=== PATIENT | female | born 1970 | race Caucasian/White ===

== ENCOUNTER 2019-01-09 20:08 | Emergency (ER) | payer MEDICAID ==
[2019-01-09] MEDS ORDERED: Acetaminophen/HYDROcodone 325-10 MG Tab PO ONE (22:34)
--- NOTE | 2019-01-09 22:39 | EDM.PDOC ---
ED HPI GENERAL MEDICAL PROBLEM - General Chief Complaint: Lower Extremity Injury/Pain Stated Complaint: LEFT KNEE AND LEG SWELLING PAIN ETC. Time Seen by Provider: 01/09/19 22:34 Source of Information: Reports: Patient History Limitations: Reports: No Limitations - History of Present Illness INITIAL COMMENTS - FREE TEXT/NARRATIVE: states had left knee surgery in 2017 and past week it flared up and swollen x 2 days, denies trauma. has appt with PMD next week. 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: , Spontaneous Musculoskeletal History: Reports: Back Pain, Chronic Neurological History: Reports: Head Trauma, Vertigo Psychiatric History: Reports: Anxiety, Depression, Mood Swings, PTSD Endocrine/Metabolic History: Reports: Diabetes, Type II, Hypothyroidism, Obesity /BMI 30+ Oncologic (Cancer) History: Reports: Uterine Dermatologic History: Reports: Eczema, Urticaria - Past Surgical History HEENT Surgical History: Reports: Adenoidectomy, Tonsillectomy Other Respiratory Surgeries/Procedures: wears cpap at night Female Surgical History: Reports: Hysterectomy, Oophorectomy Social & Family History - Family History Family Medical History: Noncontributory - Tobacco Use Smoking Status *Q: Current Every Day Smoker Years of Tobacco use: 26 Packs/Tins Daily: 0.5 Used Tobacco, but Quit: No Second Hand Smoke Exposure: Yes - Caffeine Use Caffeine Use: Reports: Coffee - Recreational Drug Use Recreational Drug Use: No Review of Systems - Review of Systems Review Of Systems: ROS reveals no pertinent complaints other than HPI. ED EXAM, GENERAL - Physical Exam Exam: See Below Exam Limited By: No Limitations General Appearance: Alert, WD/WN, Mild Distress, Other (discomfort) Ears: Hearing Grossly Normal Throat/Mouth: Normal Voice, No Airway Compromise Head: Atraumatic Neck: Non-Tender, Full Range of Motion Respiratory/Chest: No Respiratory Distress Cardiovascular: Regular Rate, Rhythm GI/Abdominal: Soft, Non-Tender Extremities: Other (left knee swollen tender R/P, NV wnl, gait limited to pain.) Neurological: Alert, Oriented, Normal Cognition, No Motor/Sensory Deficits Psychiatric: Tearful Skin Exam: Warm, Dry, Normal Color Lymphatic: No Adenopathy Course - Vital Signs Last Recorded V/S: Last Vital Signs Temp 36.7 C 01/09/19 20:30 Pulse 80 01/09/19 20:30 Resp 18 01/09/19 20:30 BP 156/81 H 01/09/19 20:30 Pulse Ox 96 01/09/19 20:30 - Orders/Labs/Meds Orders: Active Orders 24 hr Category Date Time Status Acetaminophen/HYDROcodone [[place] 325-10 MG] Med 01/09/19 22:34 Once 1 tab PO ONETIME ONE Departure - Departure Time of Disposition: 22:37 Disposition: Home, Self-Care 01 Condition: Fair Clinical Impression: Knee effusion, left - Discharge Information Instructions: Knee Effusion, [id number] Additional Instructions: 1) elevate knee as much as possible 2) wear knee immobilizer 3) see clinic tomorrow for ORTHOPEDIC REFERRAL OR MRI SCAN - My Orders Last 24 Hours: My Active Orders 01/09/19 22:34 Acetaminophen/HYDROcodone [[place]rier 325-10 MG] 1 tab PO ONETIME ONE - Assessment/Plan Last 24 Hours: My Active Orders 01/09/19 22:34 Acetaminophen/HYDROcodone [[place]rier 325-10 MG] 1 tab PO ONETIME ONE
== END 2019-01-09 23:02 | disposition home or self-care (01) ==
LOC: DL.ED 20:08
DX: M25.462 Effusion, left knee (principal); E11.9 Type 2 diabetes mellitus without complications; E66.9 Obesity, unspecified; F17.210 Nicotine dependence, cigarettes, uncomplicated; Z68.42 Body mass index [BMI] 45.0-49.9, adult; Z88.5 Allergy status to narcotic agent; Z91.040 Latex allergy status
CPT/HCPCS: 99283; A9270

== ENCOUNTER 2019-04-02 03:26 | Emergency (ER) | payer MEDICAID ==
[~2019-04-02 03:26] MED LIST: Albuterol 0.021% 0.63 MG/3 ML Neb Soln NEB ONE; methylPREDNISolone Sodium Succinate 125 MG/2 ML SDV IM ONE
[2019-04-02] MEDS ORDERED: LORazepam 2 MG/ML Syringe IVPUSH ONE (03:40)
[2019-04-02] MEDS ORDERED: Furosemide 40 MG/4 ML VIAL IVPUSH ONE (03:40)
[2019-04-02] MEDS ORDERED: Furosemide 40 MG/4 ML VIAL ONE (03:42)
[2019-04-02] MEDS ORDERED: LORazepam 2 MG/ML Syringe ONE (03:42)
[2019-04-02] MEDS ORDERED: Albuterol 0.083% 2.5 MG/3 ML Neb Soln NEB ONE (03:53)
[2019-04-02] MEDS ORDERED: Levofloxacin/Dextrose 5%-Water 500 MG in Premix Bag 1 BAG IV ONE (03:58)
[2019-04-02 03:59] LABS: ANION GAP 14.7; CHLORIDE,CL 102 mmol/L (101-111); SODIUM,NA 137 mmol/L (135-145)
--- NOTE | 2019-04-02 04:02 | EDM.PDOC ---
ED HPI GENERAL MEDICAL PROBLEM - General Chief Complaint: Respiratory Problem Stated Complaint: AMBULANCE-RESPIRATORY Time Seen by Provider: 04/02/19 03:45 Source of Information: Reports: Patient, EMS, Family, RN History Limitations: Reports: Respiratory Distress - History of Present Illness INITIAL COMMENTS - FREE TEXT/NARRATIVE: ED via [facility] with respiratory Distress. Reported COPD asthma, ill x 2 days with cough. Home nebs not helping. Initial sats in 90's on arrival of EMS to Home , Track Inspecting Supervisor reported patient brief exertion to BR. Decompensated, Extreme difficulty, Immediately placed on BiPaP had improved some with oxygenation and sats 82 on first check, Improved upper 90's now, Patient tolerating mask able to nod answers to questions. Anxious and increased respiratory effort, with minimal exertion of tx to ed cot. 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 Musculoskeletal History: Reports: Back Pain, Chronic Neurological History: Reports: Head Trauma, Vertigo Psychiatric History: Reports: Anxiety, Depression, Mood Swings, PTSD Endocrine/Metabolic History: Reports: Diabetes, Type II, Hypothyroidism, Obesity /BMI 30+ Oncologic (Cancer) History: Reports: Uterine Dermatologic History: Reports: Eczema, Urticaria - Past Surgical History HEENT Surgical History: Reports: Adenoidectomy, Tonsillectomy Other Respiratory Surgeries/Procedures: wears cpap at night Female Surgical History: Reports: Hysterectomy, Oophorectomy Social & Family History - Family History Family Medical History: Noncontributory - Caffeine Use Caffeine Use: Reports: Coffee ED ROS GENERAL - Review of Systems Review Of Systems: See Below Constitutional: Denies: Fever, Chills HEENT: Reports: No Symptoms Respiratory: Reports: Shortness of Breath, Wheezing, Cough Cardiovascular: Denies: Chest Pain Musculoskeletal: Reports: No Symptoms Skin: Reports: No Symptoms ED EXAM, GENERAL - Physical Exam Exam: See Below Exam Limited By: No Limitations General Appearance: Alert, Moderate Distress, Obese, Other (face and eyes puffy) Eye Exam: Bilateral Eye: EOMI Ears: Normal External Exam, Normal TMs Nose: Normal Inspection Head: Atraumatic, Normocephalic Neck: Normal Inspection, Full Range of Motion Respiratory/Chest: Respiratory Distress, Decreased Breath Sounds, Rhonchi, Wheezing Cardiovascular: Normal Peripheral Pulses, Regular Rate, Rhythm Extremities: Normal Inspection Skin Exam: Warm, Dry, Intact Course - Vital Signs Last Recorded V/S: Last Vital Signs Temp 99 F 04/02/19 03:44 Pulse 95 04/02/19 03:44 Resp 15 04/02/19 03:44 BP 175/75 H 04/02/19 03:44 Pulse Ox - Orders/Labs/Meds Orders: Active Orders 24 hr Category Date Time Status EKG Documentation Completion [RC] URGENT Care 04/02/19 03:35 Active RT Aerosol Therapy [RC] ASDIRECTED Care 04/02/19 03:53 Active CULTURE BLOOD [BC] Stat Lab 04/02/19 04:02 Received Blood Culture x2 Reflex Set [OM.PC] Stat Oth 04/02/19 03:33 Ordered Labs: Laboratory Tests 04/02/19 04/02/19 04/02/19 Range/Units 03:34 03:34 03:34 WBC 20.6 H (5.0-10.0) 10^3/uL RBC 5.46 H (4.2-5.4) 10^6/uL Hgb 15.5 (12.0-16.0) g/dL Hct 46.5 (37.0-47.0) % MCV 85.2 (80-100) fL MCH 28.4 (27.0-34.0) pg MCHC 33.3 (33.0-35.0) g/dL Plt Count 322 (150-450) 10^3/uL Neut % (Auto) 67.2 (42.2-75.2) % Lymph % (Auto) 21.7 (20.5-50.1) % Ocean % (Auto) 7.1 (2-8) % Eos % (Auto) 3.7 H (1.0-3.0) % Baso % (Auto) 0.3 (0.0-1.0) % Add Manual Diff Yes Neutrophils % (Manual) 70 (42-75) % Band Neutrophils % 6 % Lymphocytes % (Manual) 17 L (20-50) % Monocytes % (Manual) 5 (2-8) % Eosinophils % (Manual) 2 (1-3) % ABG pH (7.35-7.45) ABG pCO2 (35-45) mmHg ABG pO2 (70-100) mmHg ABG HCO3 (22-26) mmol/L ABG O2 Saturation (95-100) % ABG Base Excess ((-2)-(+3)) mmol/L Aram Test O2 Delivery Device Sodium 137 (135-145) mmol/L Potassium 3.7 (3.6-5.0) mmol/L Chloride 102 (101-111) mmol/L Carbon Dioxide 24.0 (21.0-31.0) mmol/L Anion Gap 14.7 BUN 12 (7-18) mg/dL Creatinine 0.8 (0.6-1.3) mg/dL Est Cr Clr Drug Dosing TNP Estimated GFR (MDRD) > 60 BUN/Creatinine Ratio 15.00 Glucose 140 H (74-105) mg/dL Lactic Acid 1.4 (0.5-2.0) mmol/L Calcium 8.9 (8.4-10.2) mg/dl Total Bilirubin 0.5 (0.2-1.0) mg/dL AST 25 (10-42) IU/L ALT 38 (10-60) IU/L Alkaline Phosphatase 68 (42-121) IU/L CK-MB (CK-2) (0.4-4.7) ng/mL Troponin I < 0.02 (0.00-0.02) ng/ml B-Natriuretic Peptide 48 (0-100) pg/ml Total Protein 7.6 (6.7-8.2) g/dl Albumin 4.1 (3.2-5.5) g/dl Globulin 3.5 Albumin/Globulin Ratio 1.17 Urine Color (YELLOW) Urine Appearance (CLEAR) Urine pH (5.0-9.0) Ur Specific Roslyn (1.005-1.030) Urine Protein (NEGATIVE) Urine Glucose (UA) (NEGATIVE) Urine Ketones (NEGATIVE) Urine Occult Blood (NEGATIVE) Urine Nitrite (NEGATIVE) Urine Bilirubin (NEGATIVE) Urine Urobilinogen (0.2-1.0) mg/dL Ur Leukocyte Esterase (NEGATIVE) Urine Opiates Screen (NEGATIVE) Ur Oxycodone Screen (NEGATIVE) Urine Methadone Screen (NEGATIVE) Ur Barbiturates Screen (NEGATIVE) U Tricyclic Antidepress (NEGATIVE) Ur Phencyclidine Scrn (NEGATIVE) Ur Amphetamine Screen (NEGATIVE) U Methamphetamines Scrn (NEGATIVE) Urine MDMA Screen (NEGATIVE) U Benzodiazepines Scrn (NEGATIVE) Urine Cocaine Screen (NEGATIVE) U Marijuana (THC) Screen (NEGATIVE) 04/02/19 04/02/19 04/02/19 Range/Units 03:34 04:09 04:18 WBC (5.0-10.0) 10^3/uL RBC (4.2-5.4) 10^6/uL Hgb (12.0-16.0) g/dL Hct (37.0-47.0) % MCV (80-100) fL MCH (27.0-34.0) pg MCHC (33.0-35.0) g/dL Plt Count (150-450) 10^3/uL Neut % (Auto) (42.2-75.2) % Lymph % (Auto) (20.5-50.1) % Ocean % (Auto) (2-8) % Eos % (Auto) (1.0-3.0) % Baso % (Auto) (0.0-1.0) % Add Manual Diff Neutrophils % (Manual) (42-75) % Band Neutrophils % % Lymphocytes % (Manual) (20-50) % Monocytes % (Manual) (2-8) % Eosinophils % (Manual) (1-3) % ABG pH 7.41 (7.35-7.45) ABG pCO2 41 (35-45) mmHg ABG pO2 82 (70-100) mmHg ABG HCO3 25.6 (22-26) mmol/L ABG O2 Saturation 96 (95-100) % ABG Base Excess 2 ((-2)-(+3)) mmol/L Aram Test Performed O2 Delivery Device Cpap Sodium (135-145) mmol/L Potassium (3.6-5.0) mmol/L Chloride (101-111) mmol/L Carbon Dioxide (21.0-31.0) mmol/L Anion Gap BUN (7-18) mg/dL Creatinine (0.6-1.3) mg/dL Est Cr Clr Drug Dosing Estimated GFR (MDRD) BUN/Creatinine Ratio Glucose (74-105) mg/dL Lactic Acid (0.5-2.0) mmol/L Calcium (8.4-10.2) mg/dl Total Bilirubin (0.2-1.0) mg/dL AST (10-42) IU/L ALT (10-60) IU/L Alkaline Phosphatase (42-121) IU/L CK-MB (CK-2) 1.30 (0.4-4.7) ng/mL Troponin I (0.00-0.02) ng/ml B-Natriuretic Peptide (0-100) pg/ml Total Protein (6.7-8.2) g/dl Albumin (3.2-5.5) g/dl Globulin Albumin/Globulin Ratio Urine Color (YELLOW) Urine Appearance (CLEAR) Urine pH (5.0-9.0) Ur Specific Roslyn (1.005-1.030) Urine Protein (NEGATIVE) Urine Glucose (UA) (NEGATIVE) Urine Ketones (NEGATIVE) Urine Occult Blood (NEGATIVE) Urine Nitrite (NEGATIVE) Urine Bilirubin (NEGATIVE) Urine Urobilinogen (0.2-1.0) mg/dL Ur Leukocyte Esterase (NEGATIVE) Urine Opiates Screen Negative (NEGATIVE) Ur Oxycodone Screen Negative (NEGATIVE) Urine Methadone Screen Negative (NEGATIVE) Ur Barbiturates Screen Negative (NEGATIVE) U Tricyclic Antidepress Negative (NEGATIVE) Ur Phencyclidine Scrn Negative (NEGATIVE) Ur Amphetamine Screen Negative (NEGATIVE) U Methamphetamines Scrn Negative (NEGATIVE) Urine MDMA Screen Negative (NEGATIVE) U Benzodiazepines Scrn Negative (NEGATIVE) Urine Cocaine Screen Negative (NEGATIVE) U Marijuana (THC) Screen Negative (NEGATIVE) 04/02/19 Range/Units 04:21 WBC (5.0-10.0) 10^3/uL RBC (4.2-5.4) 10^6/uL Hgb (12.0-16.0) g/dL Hct (37.0-47.0) % MCV (80-100) fL MCH (27.0-34.0) pg MCHC (33.0-35.0) g/dL Plt Count (150-450) 10^3/uL Neut % (Auto) (42.2-75.2) % Lymph % (Auto) (20.5-50.1) % Ocean % (Auto) (2-8) % Eos % (Auto) (1.0-3.0) % Baso % (Auto) (0.0-1.0) % Add Manual Diff Neutrophils % (Manual) (42-75) % Band Neutrophils % % Lymphocytes % (Manual) (20-50) % Monocytes % (Manual) (2-8) % Eosinophils % (Manual) (1-3) % ABG pH (7.35-7.45) ABG pCO2 (35-45) mmHg ABG pO2 (70-100) mmHg ABG HCO3 (22-26) mmol/L ABG O2 Saturation (95-100) % ABG Base Excess ((-2)-(+3)) mmol/L Aram Test O2 Delivery Device Sodium (135-145) mmol/L Potassium (3.6-5.0) mmol/L Chloride (101-111) mmol/L Carbon Dioxide (21.0-31.0) mmol/L Anion Gap BUN (7-18) mg/dL Creatinine (0.6-1.3) mg/dL Est Cr Clr Drug Dosing Estimated GFR (MDRD) BUN/Creatinine Ratio Glucose (74-105) mg/dL Lactic Acid (0.5-2.0) mmol/L Calcium (8.4-10.2) mg/dl Total Bilirubin (0.2-1.0) mg/dL AST (10-42) IU/L ALT (10-60) IU/L Alkaline Phosphatase (42-121) IU/L CK-MB (CK-2) (0.4-4.7) ng/mL Troponin I (0.00-0.02) ng/ml B-Natriuretic Peptide (0-100) pg/ml Total Protein (6.7-8.2) g/dl Albumin (3.2-5.5) g/dl Globulin Albumin/Globulin Ratio Urine Color Yellow (YELLOW) Urine Appearance Clear (CLEAR) Urine pH 6.0 (5.0-9.0) Ur Specific Roslyn 1.020 (1.005-1.030) Urine Protein Negative (NEGATIVE) Urine Glucose (UA) Negative (NEGATIVE) Urine Ketones Negative (NEGATIVE) Urine Occult Blood Negative (NEGATIVE) Urine Nitrite Negative (NEGATIVE) Urine Bilirubin Negative (NEGATIVE) Urine Urobilinogen 0.2 (0.2-1.0) mg/dL Ur Leukocyte Esterase Negative (NEGATIVE) Urine Opiates Screen (NEGATIVE) Ur Oxycodone Screen (NEGATIVE) Urine Methadone Screen (NEGATIVE) Ur Barbiturates Screen (NEGATIVE) U Tricyclic Antidepress (NEGATIVE) Ur Phencyclidine Scrn (NEGATIVE) Ur Amphetamine Screen (NEGATIVE) U Methamphetamines Scrn (NEGATIVE) Urine MDMA Screen (NEGATIVE) U Benzodiazepines Scrn (NEGATIVE) Urine Cocaine Screen (NEGATIVE) U Marijuana (THC) Screen (NEGATIVE) Meds: Medications Discontinued Medications Generic Name Dose Route Start Last Admin Trade Name Freq PRN Reason Stop Dose Admin Albuterol 0.63 mg 04/02/19 03:24 04/02/19 03:56 Proventil Neb Soln NEB 04/02/19 03:25 Not Given ONETIME ONE Albuterol 2.5 mg 04/02/19 03:53 04/02/19 03:56 Proventil Neb Soln NEB 04/02/19 03:54 2.5 mg ONETIME ONE Administration Furosemide 40 mg 04/02/19 03:40 04/02/19 03:44 Lasix IVPUSH 04/02/19 03:41 40 mg NOW ONE Administration Furosemide Confirm 04/02/19 03:42 04/02/19 03:53 Lasix Administered 04/02/19 03:43 Not Given Dose 40 mg .ROUTE .STK-MED ONE Levofloxacin/Dextrose 500 mg/ 100 mls @ 100 mls/hr 04/02/19 03:58 04/02/19 04 :02 Premix IV 04/02/19 04:57 100 mls/hr ONETIME ONE Administration Lorazepam 1 mg 04/02/19 03:40 04/02/19 03:44 Ativan IVPUSH 04/02/19 03:41 1 mg ONETIME ONE Administration Lorazepam Confirm 04/02/19 03:42 04/02/19 03:53 Ativan Administered 04/02/19 03:43 Not Given Dose 2 mg .ROUTE .STK-MED ONE Methylprednisolone Sodium Succinate 125 mg 04/02/19 03:24 04/02/19 03:53 Solu-Medrol IM 04/02/19 03:25 Not Given ONETIME ONE - Radiology Interpretation Free Text/Narrative:: [facility] [place] [facility] Final Radiology Report Call: [phone] assistance Online chat: [email or web address] Name: BOZENA POZO Age: 48Years F Date: 04/02/2019 SSN: -- : 1970 Study: XR CHEST 1 VIEW FRONTAL Requesting Physician: JUDITH CANNON Images: 1 Addl Studies: Provided Clinical History: Contrast: Contrast Medium: Contrast Amount: Contrast Method: CONFIDENTIALITY STATEMENT This report is intended only for use by the referring physician, and only in accordance with law. If you received this in error, call [phone]. Page 1 of 1 PROCEDURE INFORMATION: Exam: XR Chest, 1 View Exam date and time: 04/02/2019 3:39 AM Age: 48 years old Clinical indication: Pain; Chest pressure TECHNIQUE: Imaging protocol: XR of the chest Views: 1 view. COMPARISON: No relevant prior studies available. FINDINGS: Lungs: Unremarkable. No consolidation. Pleural space: Unremarkable. No pleural effusion. No pneumothorax. Heart/Mediastinum: Unremarkable. No cardiomegaly. Bones/joints: Unremarkable. IMPRESSION: No acute findings. Thank you for allowing us to participate in the care of your patient. Dictated and Authenticated by: Dixon Ribera MD 04/02/2019 4:04 AM Central Time ([place] & [place] - Re-Assessments/Exams Free Text/Narrative Re-Assessment/Exam: Tx Danette Herrmann accepting. Tx via [employer] [facility]. Patient continues on CPAP tolerating well. More alert at time of transfer, Anwering questions with nod. Departure - Departure Time of Disposition: 04:40 Disposition: DC/Tfer to Acute Hospital 02 Condition: Undetermined Clinical Impression: Respiratory distress Exacerbation of asthma Qualifiers: Asthma severity: severe Asthma persistence: persistent Qualified Code(s): J45.51 - Severe persistent asthma with (acute) exacerbation URI (upper respiratory infection) Qualifiers: URI type: supraglottitis Airway obstruction: without obstruction Qualified Code (s): J04.30 - Supraglottitis, unspecified, without obstruction - Discharge Information *PRESCRIPTION DRUG MONITORING PROGRAM REVIEWED*: Not Applicable *COPY OF PRESCRIPTION DRUG MONITORING REPORT IN PATIENT CARA: Not Applicable Referrals: Coreen Lancaster MD [Primary Care Provider] - Forms: ED Department Discharge Sepsis Event Note - Evaluation Sepsis Screening Result: No Definite Risk - Focused Exam Date Exam was Performed: 04/03/19 Time Exam was Performed: 03:09 - My Orders Last 24 Hours: My Active Orders 04/02/19 03:33 Blood Culture x2 Reflex Set [OM.PC] Stat 04/02/19 03:35 EKG Documentation Completion [RC] URGENT 04/02/19 03:53 RT Aerosol Therapy [RC] ASDIRECTED 04/02/19 04:02 CULTURE BLOOD [BC] Stat - Assessment/Plan Last 24 Hours: My Active Orders 04/02/19 03:33 Blood Culture x2 Reflex Set [OM.PC] Stat 04/02/19 03:35 EKG Documentation Completion [RC] URGENT 04/02/19 03:53 RT Aerosol Therapy [RC] ASDIRECTED 04/02/19 04:02 CULTURE BLOOD [BC] Stat
[2019-04-02 04:09] LABS: BASE EXCESS ARTERIAL 2 mmol/L ((-2)-(+3)); BICARBONATE,ARTERIAL 25.6 mmol/L (22-26); O2 DELIVERY DEVICE CPAP; O2 SATURATION ARTERIAL 96 % (95-100); PCO2 ARTERIAL 41 mmHg (35-45); PO2 ARTERIAL 82 mmHg (70-100)
[2019-04-02 04:12] LABS: ALLEN TEST PERFORMED
== END 2019-04-02 04:38 ==
LOC: DL.ED 03:26
DX: J45.51 Severe persistent asthma with (acute) exacerbation (principal); J04.30 Supraglottitis, unspecified, without obstruction; R06.03 Acute respiratory distress; E11.9 Type 2 diabetes mellitus without complications; E66.9 Obesity, unspecified; Z91.040 Latex allergy status; Z88.5 Allergy status to narcotic agent
CPT/HCPCS: 36415; 36600; 71045; 80053; 80305; 81003; 82553; 82803; 83605; 83880; 84484; 85025; 87040; 93005; 94640; 96365; 96375; 99285; J1940; J1956; J2060; J7613-GY

== ENCOUNTER 2019-11-12 23:53 | Emergency (ER) | payer MEDICAID ==
--- NOTE | 2019-11-13 01:13 | EDM.PDOC ---
ED HPI GENERAL MEDICAL PROBLEM - General Chief Complaint: General Stated Complaint: RECTUM BLEEDING Time Seen by Provider: 11/13/19 00:30 Source of Information: Reports: Patient, RN, RN Notes Reviewed History Limitations: Reports: No Limitations - History of Present Illness INITIAL COMMENTS - FREE TEXT/NARRATIVE: Patient presents to ER with complaint of a moderate amount of bright red blood with small clots after bowel movement today. Patient states she does have hemorrhoids and has bright red blood frequently with stools, but today was more so than usual. Patient states after rectal exam, that it does not feel as full back there in the rectal vault as it usually does. Patient states she has been having some pressure pain to the low back which extends outward and down the spine. She denies any injury, falls. Patient admits to having chronic low back pain as well as a diagnosis of scoliosis. Patient states she has history of uterine cancer, had total hysterectomy, has been doctoring recently for spots on her breast. Patient was concerned at this time for colon cancer. Patient was seen in the clinic today by her primary care provider and had a full physical including pelvic exam. 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 Musculoskeletal History: Reports: Back Pain, Chronic Neurological History: Reports: Head Trauma, Vertigo Psychiatric History: Reports: Anxiety, Depression, Mood Swings, PTSD Endocrine/Metabolic History: Reports: Diabetes, Type II, Hypothyroidism, Obesity/BMI 30+ Oncologic (Cancer) History: Reports: Uterine Dermatologic History: Reports: Eczema, Urticaria - Infectious Disease History Infectious Disease History: Reports: None - Past Surgical History HEENT Surgical History: Reports: Adenoidectomy, Tonsillectomy Other Respiratory Surgeries/Procedures: wears cpap at night Female Surgical History: Reports: Hysterectomy, Oophorectomy Social & Family History - Family History Family Medical History: Noncontributory - Tobacco Use Smoking Status *Q: Current Every Day Smoker Years of Tobacco use: 32 Packs/Tins Daily: 0.2 - Caffeine Use Caffeine Use: Reports: Coffee - Recreational Drug Use Recreational Drug Use: No ED ROS GENERAL - Review of Systems Review Of Systems: Comprehensive ROS is negative, except as noted in HPI. ED EXAM, GENERAL - Physical Exam Exam: See Below Exam Limited By: No Limitations General Appearance: Alert, WD/WN, No Apparent Distress, Obese Eye Exam: Bilateral Eye: EOMI, Normal Inspection Ears: Normal External Exam, Hearing Grossly Normal Nose: Normal Inspection Throat/Mouth: Normal Inspection, Normal Voice, No Airway Compromise Head: Atraumatic, Normocephalic Neck: Normal Inspection, Supple, Non-Tender, Full Range of Motion Respiratory/Chest: No Respiratory Distress, Lungs Clear, Normal Breath Sounds, No Accessory Muscle Use, Chest Non-Tender Cardiovascular: Normal Peripheral Pulses, Regular Rate, Rhythm, No Edema, No Gallop, No JVD, No Murmur, No Rub Peripheral Pulses: 2+: Radial (L), Radial (R) GI/Abdominal: Normal Bowel Sounds, Soft, Non-Tender (Female) Exam: Deferred Rectal (Female) Exam: Normal Exam, Normal Rectal Tone, Hemorrhoids, Other (No stool felt in the rectal vault, no internal hemorrhoids noted, no external hemorrhoids noted at this time, no bright red blood noted on glove post exam). No: Black Stool, Bloody Stool, Decreased Rectal Tone, Fecal Impaction, Perirectal Abscess, Rectal Fissure, Tenderness Back Exam: Normal Inspection, Decreased Range of Motion, Paraspinal Tenderness (Lumbar region), Vertebral Tenderness. No: CVA Tenderness (L), CVA Tenderness (R) Extremities: Normal Inspection, Non-Tender, No Pedal Edema, Normal Capillary Refill, Limited Range of Motion Neurological: Alert, Oriented, CN II-XII Intact, Normal Cognition, Normal Reflexes, No Motor/Sensory Deficits Psychiatric: Normal Affect, Normal Mood Skin Exam: Warm, Dry, Intact, Normal Color, No Rash Lymphatic: No Adenopathy Course - Vital Signs Last Recorded V/S: Last Vital Signs Temp 98.4 F 11/13/19 00:08 Pulse 88 11/13/19 00:08 Resp 18 11/13/19 00:08 BP 156/63 H 11/13/19 00:08 Pulse Ox 98 11/13/19 00:08 - Re-Assessments/Exams Free Text/Narrative Re-Assessment/Exam: 11/13/19 01:20 I suspect the patient had a thrombosed internal or perianal hemorrhoid which ruptured with bowel movement today causing the blood noted. Upon rectal exam, glove exits clean, smooth rectal whitaker noted, no hemorrhoids noted. No blood or external hemorrhoids noted. Departure - Departure Time of Disposition: 01:11 Disposition: Home, Self-Care 01 Condition: Fair Clinical Impression: Chronic low back pain Qualifiers: Back pain laterality: midline Sciatica presence: with sciatica Sciatica laterality: bilateral sciatica Qualified Code(s): M54.41 - Lumbago with sciatica, right side Hemorrhoids Qualifiers: Hemorrhoid type: unspecified Qualified Code(s): K64.9 - Unspecified hemorrhoids - Discharge Information *PRESCRIPTION DRUG MONITORING PROGRAM REVIEWED*: No *COPY OF PRESCRIPTION DRUG MONITORING REPORT IN PATIENT CARA: No Instructions: Radicular Pain, Back Injury Prevention, [id number], Hemorrhoids, [id number], Chronic Back Pain, [id number] Forms: ED Department Discharge Additional Instructions: Follow-up with Dr. Milton Return to the ER with any worsening of symptoms Sepsis Event Note (ED) - Evaluation Sepsis Screening Result: No Definite Risk - Focused Exam Vital Signs: Vital Signs Temp Pulse Resp BP Pulse Ox 11/13/19 00:08 98.4 F 88 18 156/63 H 98
== END 2019-11-13 01:16 | disposition home or self-care (01) ==
LOC: DL.ED 23:53
DX: K64.9 Unspecified hemorrhoids (principal); M54.41 Lumbago with sciatica, right side; F17.210 Nicotine dependence, cigarettes, uncomplicated; E11.9 Type 2 diabetes mellitus without complications; J45.909 Unspecified asthma, uncomplicated; E66.9 Obesity, unspecified; Z91.040 Latex allergy status; Z88.5 Allergy status to narcotic agent; Z68.42 Body mass index [BMI] 45.0-49.9, adult
CPT/HCPCS: 99283

== ENCOUNTER 2020-07-15 13:27 | Emergency (ER) | payer MEDICAID ==
--- NOTE | 2020-07-15 15:17 | EDM.PDOC ---
ED HPI GENERAL MEDICAL PROBLEM - General Chief Complaint: Cardiovascular Problem Stated Complaint: SENT FROM [facility] Time Seen by Provider: 07/15/20 14:30 Source of Information: Reports: Patient, RN, RN Notes Reviewed History Limitations: Reports: No Limitations - History of Present Illness INITIAL COMMENTS - FREE TEXT/NARRATIVE: Patient is a 50-year-old female who presents to ER with complaint of increased swelling and shortness of breath. Patient states she tried to go to the clinic today, but unable to get in. Nurse from clinic told her to go to ER. Patient states she generally takes 40mg of Lasix daily. Three days ago (by herself) increased Lasix to 80mg daily. States first day she put a lot out, but not as much the next 2 days and has become more edematous and shortness of breath. She denies chest pains, recent illness, fever, chills, nausea, vomiting, or diarrhea. Denies ever having COVID, has not been vaccinated. Onset: Gradual Duration: Getting Worse Location: Reports: Generalized Severity: Moderate Improves with: Reports: None Worsens with: Reports: None Associated Symptoms: Reports: No Other Symptoms Left Ankle Pain Score (Numeric/FACES): 8 - Related Data Allergies Allergy/AdvReac Type Severity Reaction Status Date / Time latex Allergy Rash Verified 04/09/18 15:53 codeine AdvReac Hyperactivi Verified 04/09/18 15:54 ty Home Meds: Home Meds Citalopram [Citalopram HBr] 40 mg PO DAILY 07/15/20 [History] Levothyroxine 25 mcg PO DAILY 07/15/20 [History] Liraglutide [Victoza 2-Murphy] 1.8 mg SUBCUT DAILY 07/15/20 [History] Meloxicam 15 mg PO DAILY 07/15/20 [History] Modafinil [Provigil] 100 mg PO DAILY 07/15/20 [History] Rosuvastatin [Crestor] 5 mg PO BEDTIME 07/15/20 [History] lamoTRIgine 200 mg PO DAILY 07/15/20 [History] lamoTRIgine [Lamotrigine] 100 mg PO DAILY 07/15/20 [History] metFORMIN [Glucophage] 500 mg PO BID 07/15/20 [History] Past Medical History HEENT History: Reports: Impaired Vision Cardiovascular History: Reports: High Cholesterol, Syncope Respiratory History: Reports: Asthma, Sleep Apnea Gastrointestinal History: Reports: Chronic Constipation, Other (See Below) Other Gastrointestinal History: something wrong with the rectum 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: , 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 Musculoskeletal History: Reports: Back Pain, Chronic Neurological History: Reports: Head Trauma, Vertigo Psychiatric History: Reports: Anxiety, Depression, Mood Swings, PTSD Endocrine/Metabolic History: Reports: Diabetes, Type II, Hypothyroidism, Obesity/BMI 30+ Hematologic History: Reports: None Oncologic (Cancer) History: Reports: Uterine Dermatologic History: Reports: Eczema, Urticaria - Infectious Disease History Infectious Disease History: Reports: None - Past Surgical History HEENT Surgical History: Reports: Adenoidectomy, Tonsillectomy Respiratory Surgical History: Reports: None Other Respiratory Surgeries/Procedures: wears CPAP at night. Female Surgical History: Reports: Hysterectomy, Oophorectomy Social & Family History - Family History Family Medical History: No Pertinent Family History - Tobacco Use Tobacco Use Status *Q: Current Every Day Tobacco User Years of Tobacco use: 31 Packs/Tins Daily: 1 - Caffeine Use Caffeine Use: Reports: Soda - Recreational Drug Use Recreational Drug Use: No ED ROS GENERAL - Review of Systems Review Of Systems: Comprehensive ROS is negative, except as noted in HPI. ED EXAM, GENERAL - Physical Exam Exam: See Below Exam Limited By: No Limitations General Appearance: Alert, WD/WN, No Apparent Distress Eye Exam: Bilateral Eye: EOMI, Normal Inspection, PERRL Ears: Normal External Exam, Normal Canal, Hearing Grossly Normal, Normal TMs Nose: Normal Inspection Throat/Mouth: Normal Inspection, Normal Lips, Normal Teeth, Normal Gums, Normal Oropharynx, Normal Voice, No Airway Compromise Head: Other (face is puffy) Neck: Normal Inspection, Supple, Non-Tender, Full Range of Motion Respiratory/Chest: Other (diminished with expiratory wheezes) Cardiovascular: Other (+2 oitting edema bilateral lower legs) GI/Abdominal: Normal Bowel Sounds, Soft, Non-Tender, No Organomegaly, No Distention, No Abnormal Bruit, No Mass (Female) Exam: Deferred Rectal (Female) Exam: Deferred Back Exam: Normal Inspection, Full Range of Motion, NT Extremities: Normal Inspection, Normal Range of Motion, Non-Tender, Normal Capillary Refill, No Pedal Edema Neurological: Alert, Oriented, CN II-XII Intact, Normal Cognition, Normal Gait, Normal Reflexes, No Motor/Sensory Deficits Psychiatric: Normal Affect, Normal Mood Skin Exam: Warm, Dry, Intact, Normal Color, No Rash Lymphatic: No Adenopathy #1 Interpretation EKG Date: 07/15/20 Time: 15:03 Rhythm: Other (sinus rhythm) Rate (Beats/Min): 82 [place]: Normal P-Wave: Present QRS: Normal ST-T: Normal QT: Normal Course - Vital Signs Last Recorded V/S: Last Vital Signs Temp 99.5 F 07/15/20 13:49 Pulse 85 07/15/20 16:37 Resp 18 07/15/20 13:49 BP 174/88 H 07/15/20 16:37 Pulse Ox 96 07/15/20 13:49 - Orders/Labs/Meds Labs: Laboratory Tests 07/15/20 07/15/20 07/15/20 Range/Units 14:54 14:54 14:54 WBC 16.8 H (5.0-10.0) 10^3/uL RBC 5.37 (4.2-5.4) 10^6/uL Hgb 15.3 (12.0-16.0) g/dL Hct 46.3 (37.0-47.0) % MCV 86.2 (80-100) fL MCH 28.5 (27.0-34.0) pg MCHC 33.0 (33.0-35.0) g/dL Plt Count 325 (150-450) 10^3/uL Neut % (Auto) 68.5 (42.2-75.2) % Lymph % (Auto) 20.9 (20.5-50.1) % Wells % (Auto) 6.9 (2-8) % Eos % (Auto) 3.4 H (1.0-3.0) % Baso % (Auto) 0.3 (0.0-1.0) % PT 10.0 (9.0-12.0) SEC INR 1.0 (0.9-1.2) Sodium 139 (136-145) mmol/L Potassium 3.7 (3.5-5.1) mmol/L Chloride 101 (98-107) mmol/L Carbon Dioxide 31 (21-32) mmol/L Anion Gap 10.7 (7-13) mEq/L BUN 13 (7-18) mg/dL Creatinine 0.87 (0.55-1.02) mg/dL Est Cr Clr Drug Dosing TNP Estimated GFR (MDRD) > 60 BUN/Creatinine Ratio 14.9 (No establ ref range) Glucose 203 H (70-99) mg/dL Calcium 8.8 (8.5-10.1) mg/dL Magnesium 1.8 (1.8-2.4) mg/dL Total Bilirubin 0.4 (0.2-1.0) mg/dL AST 31 (15-37) U/L ALT 49 (14-59) U/L Alkaline Phosphatase 98 (46-116) U/L Troponin I < 0.017 (0.000-0.056) ng/mL B-Natriuretic Peptide 71 (0-100) pg/ml Total Protein 6.8 (6.4-8.2) g/dL Albumin 3.4 (3.4-5.0) g/dL Globulin 3.4 Albumin/Globulin Ratio 1.0 SARS-CoV-2 RNA (RADAMES) (NEGATIVE) 07/15/20 Range/Units 15:18 WBC (5.0-10.0) 10^3/uL RBC (4.2-5.4) 10^6/uL Hgb (12.0-16.0) g/dL Hct (37.0-47.0) % MCV (80-100) fL MCH (27.0-34.0) pg MCHC (33.0-35.0) g/dL Plt Count (150-450) 10^3/uL Neut % (Auto) (42.2-75.2) % Lymph % (Auto) (20.5-50.1) % Wells % (Auto) (2-8) % Eos % (Auto) (1.0-3.0) % Baso % (Auto) (0.0-1.0) % PT (9.0-12.0) SEC INR (0.9-1.2) Sodium (136-145) mmol/L Potassium (3.5-5.1) mmol/L Chloride (98-107) mmol/L Carbon Dioxide (21-32) mmol/L Anion Gap (7-13) mEq/L BUN (7-18) mg/dL Creatinine (0.55-1.02) mg/dL Est Cr Clr Drug Dosing Estimated GFR (MDRD) BUN/Creatinine Ratio (No establ ref range) Glucose (70-99) mg/dL Calcium (8.5-10.1) mg/dL Magnesium (1.8-2.4) mg/dL Total Bilirubin (0.2-1.0) mg/dL AST (15-37) U/L ALT (14-59) U/L Alkaline Phosphatase (46-116) U/L Troponin I (0.000-0.056) ng/mL B-Natriuretic Peptide (0-100) pg/ml Total Protein (6.4-8.2) g/dL Albumin (3.4-5.0) g/dL Globulin Albumin/Globulin Ratio SARS-CoV-2 RNA (RADAMES) Negative (NEGATIVE) Meds: Medications Discontinued Medications Generic Name Dose Route Start Last Admin Trade Name Freq PRN Reason Stop Dose Admin Albuterol 2.5 mg 07/15/20 15:29 07/15/20 15:35 Albuterol 0.083% 2.5 Mg/3 Ml Neb Soln NEB 07/15/20 15:30 2.5 mg ONETIME ONE Administration Metoprolol Tartrate 25 mg 07/15/20 16:21 07/15/20 16:37 Metoprolol Tartrate 25 Mg Tab PO 07/15/20 16:22 25 mg ONETIME ONE Administration - Radiology Interpretation Free Text/Narrative:: Chest x-ray: Prominent cardiac silhouette but no new pulmonary vascular congestion, cephalization of flow, alveolar edema, or dependent pleural fluid accumulation. No new lung mass or hilar lymphadenopathy. exogenous obesity No alveolar infiltrates, atelectasis/collapse, or peripheral groundglass interstitial lung densities No pneumothorax or pneumomediastinum midline tracheobronchial airway unremarkable See radiologist report Departure - Departure Time of Disposition: 16:42 Disposition: Home, Self-Care 01 Reason for Transfer *Q: Other Condition: Fair Clinical Impression: Pedal edema Instructions: Hypertension, Adult, [id number], Edema, [id number] Forms: ED Department Discharge Additional Instructions: Rx: Metroprolol Succinate 25mg orally daily Call tomorrow to make an appointment with your primary care facility next week for referral to Cardiology, need for echocardiogram and refill of Metoprolol. Sepsis Event Note (ED) - Evaluation Sepsis Screening Result: No Definite Risk - Focused Exam Vital Signs: Vital Signs Temp Pulse Pulse Resp BP BP Pulse Ox 07/15/20 16:37 85 174/88 H 07/15/20 13:49 99.5 F 80 18 148/82 H 96
[2020-07-15 15:20] LABS: ANION GAP 10.7 mEq/L (7-13); CHLORIDE,CL 101 mmol/L (98-107); SODIUM,NA 139 mmol/L (136-145)
[2020-07-15] MEDS ORDERED: Albuterol 0.083% 2.5 MG/3 ML Neb Soln NEB ONE (15:29)
--- NOTE | 2020-07-15 15:56 | CR ---
EXAMINATION: Chest 1V Frontal SEX: Female AGE: 50 years CLINICAL HISTORY: 50-year-old female complaining of chest pain. Note: Comparison CXR 02 April 2019 (chest pressure) demonstrated "no acute findings". Interpretation: Prominent cardiac silhouette but no new pulmonary vascular congestion, cephalization of flow, alveolar edema or dependent pleural fluid accumulation. No new lung mass or hilar lymphadenopathy. Exogenous obesity. No alveolar infiltrates, atelectasis/collapse, or peripheral "groundglass" interstitial lung densities. No pneumothorax or pneumomediastinum. Midline tracheal bronchial airway unremarkable. CONCLUSION: No acute new cardiopulmonary abnormality.
[2020-07-15] MEDS ORDERED: Metoprolol Tartrate 25 MG Tab PO ONE (16:21)
== END 2020-07-15 16:49 | disposition home or self-care (01) ==
LOC: DL.ED 13:27
DX: R60.0 Localized edema (principal); E78.00 Pure hypercholesterolemia, unspecified; E11.9 Type 2 diabetes mellitus without complications; E66.9 Obesity, unspecified; E03.9 Hypothyroidism, unspecified; Z20.822 Contact with and (suspected) exposure to COVID-19; Z72.0 Tobacco use; Z68.43 Body mass index [BMI] 50.0-59.9, adult; Z79.84 Long term (current) use of oral hypoglycemic drugs
CPT/HCPCS: 36415; 71045; 80053; 83735; 83880; 84484; 85025; 85610; 87635; 93005; 93010; 99283; 99285; A9270; J7613-GY; U0002

== ENCOUNTER 2020-08-16 04:02 | Emergency (ER) | payer MEDICAID ==
--- NOTE | 2020-08-16 04:25 | EDM.PDOC ---
ED HPI GENERAL MEDICAL PROBLEM - General Chief Complaint: Asthma Stated Complaint: AMBULANCE Time Seen by Provider: 08/16/20 04:19 Source of Information: Reports: Patient, Family (), RN, RN Notes Reviewed History Limitations: Reports: No Limitations - History of Present Illness INITIAL COMMENTS - FREE TEXT/NARRATIVE: Bozena is a 50 y/o female with a history of asthma who presents to the ED via [facility] with complaints of shortness of breath. The patient reports her symptoms began yesterday evening and have progressively worsened in that time. She has taken her daily BID Dulera, as well as two albuterol nebulizer treatments with [id number] alleviation of symptoms. She denies recent illness, fever, shaking chills, sore throat, cough, chest pain, palpitations, nausea, vomiting, or abdominal pain. She denies history of COVID infection and has not received a COVID vaccine. The patient does attest to a history of anxiety with panic attack, for which she is prescribed lamotrigine and modafinil. She states she performed her "..grounding exercises" throughout her exacerbation and continued to feel short of breath. The patient attests to smoking one pack of cigarettes per day; she denies alcohol or recreational drug use. - Related Data Allergies Allergy/AdvReac Type Severity Reaction Status Date / Time latex Allergy Rash Verified 08/16/20 04:11 codeine AdvReac Hyperactivi Verified 08/16/20 04:11 ty Home Meds: Home Meds Citalopram [Citalopram HBr] 40 mg PO DAILY 07/15/20 [History] Levothyroxine 25 mcg PO DAILY 07/15/20 [History] Liraglutide [Victoza 2-Murphy] 1.8 mg SUBCUT DAILY 07/15/20 [History] Meloxicam 15 mg PO DAILY 07/15/20 [History] Modafinil [Provigil] 100 mg PO DAILY 07/15/20 [History] Rosuvastatin [Crestor] 5 mg PO BEDTIME 07/15/20 [History] lamoTRIgine 200 mg PO DAILY 07/15/20 [History] lamoTRIgine [Lamotrigine] 100 mg PO DAILY 07/15/20 [History] metFORMIN [Glucophage] 500 mg PO BID 07/15/20 [History] Past Medical History HEENT History: Reports: Impaired Vision Cardiovascular History: Reports: High Cholesterol, Syncope Respiratory History: Reports: Asthma, Sleep Apnea Gastrointestinal History: Reports: Chronic Constipation, Other (See Below) Other Gastrointestinal History: something wrong with the rectum 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: , 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 Musculoskeletal History: Reports: Back Pain, Chronic Neurological History: Reports: Head Trauma, Vertigo Psychiatric History: Reports: Anxiety, Depression, Mood Swings, PTSD Endocrine/Metabolic History: Reports: Diabetes, Type II, Hypothyroidism, Obesity/BMI 30+ Hematologic History: Reports: None Oncologic (Cancer) History: Reports: Uterine Dermatologic History: Reports: Eczema, Urticaria - Infectious Disease History Infectious Disease History: Reports: None - Past Surgical History HEENT Surgical History: Reports: Adenoidectomy, Tonsillectomy Respiratory Surgical History: Reports: None Other Respiratory Surgeries/Procedures: wears CPAP at night. Female Surgical History: Reports: Hysterectomy, Oophorectomy Social & Family History - Family History Family Medical History: No Pertinent Family History - Tobacco Use Tobacco Use Status *Q: Current Every Day Tobacco User Years of Tobacco use: 20 Packs/Tins Daily: 1 - Caffeine Use Caffeine Use: Reports: None - Recreational Drug Use Recreational Drug Use: No ED ROS GENERAL - Review of Systems Review Of Systems: Comprehensive ROS is negative, except as noted in HPI. ED EXAM, GENERAL - Physical Exam Exam: See Below Exam Limited By: No Limitations General Appearance: Alert, No Apparent Distress, Obese Eye Exam: Bilateral Eye: EOMI, Normal Inspection, PERRL (3mm) Ears: Normal External Exam, Normal Canal, Hearing Grossly Normal, Normal TMs Ear Exam: Bilateral Ear: Auricle Normal, Canal Normal, TM normal Nose: Normal Inspection, Normal Mucosa, No Blood Throat/Mouth: Normal Inspection, Normal Oropharynx, Normal Voice, No Airway Compromise, Other (Patient able to converse easily without shortness of breath) Head: Atraumatic, Normocephalic Neck: Normal Inspection, Supple, Non-Tender, Full Range of Motion. No: Lymphadenopathy (L), Lymphadenopathy (R) Respiratory/Chest: No Respiratory Distress, No Accessory Muscle Use, Chest Non- Tender, Decreased Breath Sounds (Diffuse to all lobes), Rales (To right lower lobe), Wheezing (To right upper lobes). No: Crackles, Rhonchi, Stridor Cardiovascular: Normal Peripheral Pulses, Regular Rate, Rhythm, No Edema, No Gallop, No JVD, No Murmur, No Rub Peripheral Pulses: 2+: Radial (L), Radial (R) GI/Abdominal: Normal Bowel Sounds, Soft, Non-Tender, No Distention, No Mass, Pelvis Stable (Female) Exam: Deferred Rectal (Female) Exam: Deferred Back Exam: Normal Inspection, Full Range of Motion Extremities: Normal Inspection, Normal Range of Motion, Non-Tender, No Pedal Edema, Normal Capillary Refill Neurological: Alert, Oriented, CN II-XII Intact, Normal Cognition, Normal Reflexes, No Motor/Sensory Deficits Psychiatric: Normal Mood, Flat Affect Skin Exam: Warm, Dry, Intact, Normal Color, No Rash. No: Ecchymosis, Erythema, Jaundice, Mottled, Pallor, Petechiae Course - Vital Signs Last Recorded V/S: Last Vital Signs Temp 97.6 F 08/16/20 04:02 Pulse 82 08/16/20 04:02 Resp 19 08/16/20 04:02 BP 148/64 H 08/16/20 04:02 Pulse Ox 95 08/16/20 04:02 - Orders/Labs/Meds Labs: Laboratory Tests 08/16/20 08/16/20 08/16/20 Range/Units 04:00 04:00 04:00 WBC 17.7 H (5.0-10.0) 10^3/uL RBC 5.39 (4.2-5.4) 10^6/uL Hgb 15.2 (12.0-16.0) g/dL Hct 46.6 (37.0-47.0) % MCV 86.5 (80-100) fL MCH 28.2 (27.0-34.0) pg MCHC 32.6 L (33.0-35.0) g/dL Plt Count 317 (150-450) 10^3/uL Neut % (Auto) 71.1 (42.2-75.2) % Lymph % (Auto) 19.1 L (20.5-50.1) % Wood % (Auto) 6.7 (2-8) % Eos % (Auto) 2.8 (1.0-3.0) % Baso % (Auto) 0.3 (0.0-1.0) % Add Manual Diff Yes Neutrophils % (Manual) 63 (42-75) % Band Neutrophils % 10 % Lymphocytes % (Manual) 20 (20-50) % Atypical Lymphs % 0 % Monocytes % (Manual) 4 (2-8) % Eosinophils % (Manual) 3 (1-3) % Sodium 140 (136-145) mmol/L Potassium 3.7 (3.5-5.1) mmol/L Chloride 101 (98-107) mmol/L Carbon Dioxide 27 (21-32) mmol/L Anion Gap 15.7 H (7-13) mEq/L BUN 13 (7-18) mg/dL Creatinine 0.76 (0.55-1.02) mg/dL Est Cr Clr Drug Dosing 83.82 mL/min Estimated GFR (MDRD) > 60 BUN/Creatinine Ratio 17.1 (No establ ref range) Glucose 260 H (70-99) mg/dL Calcium 8.3 L (8.5-10.1) mg/dL Total Bilirubin 0.3 (0.2-1.0) mg/dL AST 34 (15-37) U/L ALT 57 (14-59) U/L Alkaline Phosphatase 123 H (46-116) U/L C-Reactive Protein 3.7 H (0.0-0.9) mg/dL B-Natriuretic Peptide 110 H (0-100) pg/ml Total Protein 6.8 (6.4-8.2) g/dL Albumin 3.4 (3.4-5.0) g/dL Globulin 3.4 Albumin/Globulin Ratio 1.0 Influenza Type A RNA (NEGATIVE) Influenza Type B RNA (NEGATIVE) SARS-CoV-2 RNA (RADAMES) (NEGATIVE) 08/16/20 Range/Units 04:30 WBC (5.0-10.0) 10^3/uL RBC (4.2-5.4) 10^6/uL Hgb (12.0-16.0) g/dL Hct (37.0-47.0) % MCV (80-100) fL MCH (27.0-34.0) pg MCHC (33.0-35.0) g/dL Plt Count (150-450) 10^3/uL Neut % (Auto) (42.2-75.2) % Lymph % (Auto) (20.5-50.1) % Wood % (Auto) (2-8) % Eos % (Auto) (1.0-3.0) % Baso % (Auto) (0.0-1.0) % Add Manual Diff Neutrophils % (Manual) (42-75) % Band Neutrophils % % Lymphocytes % (Manual) (20-50) % Atypical Lymphs % % Monocytes % (Manual) (2-8) % Eosinophils % (Manual) (1-3) % Sodium (136-145) mmol/L Potassium (3.5-5.1) mmol/L Chloride (98-107) mmol/L Carbon Dioxide (21-32) mmol/L Anion Gap (7-13) mEq/L BUN (7-18) mg/dL Creatinine (0.55-1.02) mg/dL Est Cr Clr Drug Dosing mL/min Estimated GFR (MDRD) BUN/Creatinine Ratio (No establ ref range) Glucose (70-99) mg/dL Calcium (8.5-10.1) mg/dL Total Bilirubin (0.2-1.0) mg/dL AST (15-37) U/L ALT (14-59) U/L Alkaline Phosphatase (46-116) U/L C-Reactive Protein (0.0-0.9) mg/dL B-Natriuretic Peptide (0-100) pg/ml Total Protein (6.4-8.2) g/dL Albumin (3.4-5.0) g/dL Globulin Albumin/Globulin Ratio Influenza Type A RNA Negative (NEGATIVE) Influenza Type B RNA Negative (NEGATIVE) SARS-CoV-2 RNA (RADAMES) Negative (NEGATIVE) Meds: Medications Discontinued Medications Generic Name Dose Route Start Last Admin Trade Name Freq PRN Reason Stop Dose Admin Furosemide 40 mg 08/16/20 05:49 08/16/20 05:55 Furosemide 40 Mg/4 Ml Vial IVPUSH 08/16/20 05:50 40 mg ONETIME ONE Administration - Radiology Interpretation Free Text/Narrative:: [facility] Final Radiology Report Call: [phone] assistance Online chat: [email or web address] Management Name: BOZENA POZO Age: 50Years F Date: 08/16/2020 SSN: -- : 1970 Study: CR CHEST 1V FRONTAL Requesting Physician: Elaine Aviles Images: 1 Addl Studies: Provided Clinical History: Rales to RLL; Shortness of breath Contrast: Contrast Medium: Contrast Amount: Contrast Method: CONFIDENTIALITY STATEMENT This report is intended only for use by the referring physician, and only in accordance with law. If you received this in error, call [phone]. Page 1 of 1 PROCEDURE INFORMATION: Exam: XR Chest Exam date and time: 08/16/2020 4:31 AM Age: 50 years old Clinical indication: Other: Rales to rll; Shortness of breath TECHNIQUE: Imaging protocol: XR of the chest. Views: 1 view. COMPARISON: CR Chest 1V Frontal 07/15/2020 3:15 PM FINDINGS: Lungs: There is some indistinctness of the pulmonary vasculature and hazy linear opacities are present in the lower hemithoraces, findings that suggest pulmonary edema. This appears similar to that seen on 07/15/2020. Pleural spaces: Unremarkable. No pleural effusion. No pneumothorax. Heart/Mediastinum: Cardiac silhouette is at the upper limits of normal. Bones/joints: Unremarkable. IMPRESSION: Findings suggesting pulmonary edema. Thank you for allowing us to participate in the care of your patient. Dictated and Authenticated by: Thai Newsome MD 08/16/2020 4:51 AM Central Time ([place] & [place]) - Re-Assessments/Exams Free Text/Narrative Re-Assessment/Exam: 08/16/20 CXR obtained; patient resting comfortably on 1L of O2 via NC with O2 sats in the mid 90s. COVID/Flu swab sent. WBC 17.7 with no left shift; patient chronically elevated when previous labs reviewed. Hgb 15.2 Kidney function, liver function, and electrolytes appropriate via CMP. Glucose elevated at 260; patient states she is currently transitioning off of Victoza to a new medication which has not controlled her blood sugar as well. CXR reveals pulmonary edema. BNP 110. COVID and Influenza negative. Findings of examination, lab work, and imaging reviewed with patient and her . Will treat with increasing furosemide to 20mg BID; patient states she recently cut down on her furosemide after starting a beta jina last month. Patient instructed to follow up with primary care provider early this coming week. Red flag signs and symptoms which would warrant reevaluation reviewed. Patient verbalized understanding and agreement with the plan of care. Departure - Departure Time of Disposition: 06:08 Disposition: Home, Self-Care 01 Condition: Good Clinical Impression: Pulmonary edema Qualifiers: Chronicity: acute Qualified Code(s): J81.0 - Acute pulmonary edema - Discharge Information *PRESCRIPTION DRUG MONITORING PROGRAM REVIEWED*: Not Applicable *COPY OF PRESCRIPTION DRUG MONITORING REPORT IN PATIENT CARA: Not Applicable Instructions: Pulmonary Edema, [id number] Forms: ED Department Discharge Additional Instructions: Rx: furosemide 1.) Take the extra dose of furosemide late in the afternoon, but preferably bef ore 8pm to avoid late night urination. 2.) Follow up with your primary care provider in 2-3 days regarding today's visit, or sooner should symptoms persist or worsen. 3.) Continue on previously prescribed medications. Sepsis Event Note (ED) - Evaluation Sepsis Screening Result: No Definite Risk - Focused Exam Vital Signs: Vital Signs Temp Pulse Resp BP Pulse Ox 08/16/20 04:02 97.6 F 82 19 148/64 H 95
--- NOTE | 2020-08-16 04:52 | CR ---
PROCEDURE INFORMATION: Exam: XR Chest Exam date and time: 08/16/2020 4:31 AM Age: 50 years old Clinical indication: Other: Rales to rll; Shortness of breath TECHNIQUE: Imaging protocol: XR of the chest. Views: 1 view. COMPARISON: CR Chest 1V Frontal 07/15/2020 3:15 PM FINDINGS: Lungs: There is some indistinctness of the pulmonary vasculature and hazy linear opacities are present in the lower hemithoraces, findings that suggest pulmonary edema. This appears similar to that seen on 07/15/2020. Pleural spaces: Unremarkable. No pleural effusion. No pneumothorax. Heart/Mediastinum: Cardiac silhouette is at the upper limits of normal. Bones/joints: Unremarkable. IMPRESSION: Findings suggesting pulmonary edema.
[2020-08-16 04:54] LABS: ANION GAP 15.7 mEq/L (7-13); CHLORIDE,CL 101 mmol/L (98-107); SODIUM,NA 140 mmol/L (136-145)
[2020-08-16 05:24] LABS: CORONAVIRUS COVID-19 NAA NEGATIVE (NEGATIVE)
[2020-08-16] MEDS ORDERED: Furosemide 40 MG/4 ML VIAL IVPUSH ONE (05:49)
== END 2020-08-16 06:06 | disposition home or self-care (01) ==
LOC: DL.ED 04:02
DX: J81.0 Acute pulmonary edema (principal); E03.9 Hypothyroidism, unspecified; E66.9 Obesity, unspecified; E11.9 Type 2 diabetes mellitus without complications; Z79.84 Long term (current) use of oral hypoglycemic drugs; Z68.30 Body mass index [BMI] 30.0-30.9, adult; Z72.0 Tobacco use; Z20.822 Contact with and (suspected) exposure to COVID-19
CPT/HCPCS: 0240U; 36415; 71045; 80053; 83880; 85025; 86140; 96374; 99283; 99285-25; J1940

== ENCOUNTER 2020-08-21 01:48 | Observation (INO) | payer MEDICAID ==
[2020-08-21 02:26] LABS: ANION GAP 10.4 mEq/L (7-13); CHLORIDE,CL 102 mmol/L (98-107); SODIUM,NA 138 mmol/L (136-145)
--- NOTE | 2020-08-21 03:21 | EDM.PDOC ---
ED HPI GENERAL MEDICAL PROBLEM - General Chief Complaint: Respiratory Problem Stated Complaint: HARD TO BREATH Time Seen by Provider: 08/21/20 02:30 Source of Information: Reports: Patient, Old Records, RN, RN Notes Reviewed History Limitations: Reports: No Limitations - History of Present Illness INITIAL COMMENTS - FREE TEXT/NARRATIVE: Bozena is a 50 y/o female who presents to the ED via personal vehicle with for shortness of breath. She reports feeling as though she is limited to the amount of air she is able to intake. The patient was evaluated in this facility six nights ago and was subsequently treated for fluid overload with furosemide 20mg, as well as an increase in daily furosemide to BID x5 days and to follow up with PCP. The patient states her PCP has continued her on this dose of furosemide. The patient denies fever, shaking chills, cough, sore throat, chest pain, palpitations, dyspepsia, or abdominal pain. The patient reports she uses a CPap at night for sleep and continues to feel SOB with her CPap on. She attests to smoking one pack of cigarettes per day; she denies alcohol and recreational drug use. - Related Data Allergies Allergy/AdvReac Type Severity Reaction Status Date / Time latex Allergy Rash Verified 08/21/20 01:56 codeine AdvReac Hyperactivi Verified 08/21/20 01:56 ty Home Meds: Home Meds Levothyroxine 25 mcg PO DAILY 07/15/20 [History] Meloxicam 15 mg PO DAILY 07/15/20 [History] Modafinil [Provigil] 100 mg PO DAILY 07/15/20 [History] Rosuvastatin [Crestor] 5 mg PO BEDTIME 07/15/20 [History] lamoTRIgine 200 mg PO DAILY 07/15/20 [History] lamoTRIgine [Lamotrigine] 100 mg PO DAILY 07/15/20 [History] Albuterol Sulfate [Proair Hfa] 2 puff IH Q6H PRN 08/21/20 [History] Citalopram [Citalopram HBr] 40 mg PO DAILY 08/21/20 [History] Furosemide [Lasix] 20 mg PO BID 08/21/20 [History] Gabapentin [Neurontin] 100 mg PO BEDTIME 08/21/20 [History] Metoprolol Succinate 25 mg PO DAILY 08/21/20 [History] metFORMIN [Glucophage] 1,000 mg PO BIDMEALS 08/21/20 [History] Past Medical History HEENT History: Reports: Impaired Vision Cardiovascular History: Reports: High Cholesterol, Syncope Respiratory History: Reports: Asthma, Sleep Apnea Gastrointestinal History: Reports: Chronic Constipation, Other (See Below) Other Gastrointestinal History: something wrong with the rectum INSTRUMENTATION ENGINEER History: Reports: , Spontaneous Musculoskeletal History: Reports: Back Pain, Chronic Neurological History: Reports: Head Trauma, Vertigo Psychiatric History: Reports: Anxiety, Depression, Mood Swings, PTSD Endocrine/Metabolic History: Reports: Diabetes, Type II, Hypothyroidism, Obesity/BMI 30+ Hematologic History: Reports: None Oncologic (Cancer) History: Reports: Uterine Dermatologic History: Reports: Eczema, Urticaria - Infectious Disease History Infectious Disease History: Reports: None - Past Surgical History HEENT Surgical History: Reports: Adenoidectomy, Tonsillectomy Respiratory Surgical History: Reports: None Other Respiratory Surgeries/Procedures: wears CPAP at night. Female Surgical History: Reports: Hysterectomy, Oophorectomy Social & Family History - Family History Family Medical History: No Pertinent Family History - Tobacco Use Tobacco Use Status *Q: Current Every Day Tobacco User Years of Tobacco use: 25 Packs/Tins Daily: 0.5 Second Hand Smoke Exposure: Yes - Caffeine Use Caffeine Use: Reports: None - Recreational Drug Use Recreational Drug Use: No ED ROS GENERAL - Review of Systems Review Of Systems: Comprehensive ROS is negative, except as noted in HPI. ED EXAM, GENERAL - Physical Exam Exam: See Below Exam Limited By: No Limitations General Appearance: Alert, No Apparent Distress, Obese Eye Exam: Bilateral Eye: EOMI, Normal Inspection, PERRL (4mm) Ears: Normal External Exam, Normal Canal, Hearing Grossly Normal, Normal TMs Throat/Mouth: Normal Inspection, Normal Oropharynx, Normal Voice, No Airway Compromise Head: Atraumatic, Normocephalic Neck: Normal Inspection, Supple, Non-Tender, Full Range of Motion. No: Lymphadenopathy (L), Lymphadenopathy (R) Respiratory/Chest: Decreased Breath Sounds, Wheezing (Expiratory diffuse to lobes), Other (Patient able to converse normally during examination). No: Chest Non-Tender, Crackles, Rales, Rhonchi, Stridor, Pleural Rub Cardiovascular: Normal Peripheral Pulses, Regular Rate, Rhythm, No Gallop, No JVD, No Murmur, No Rub Peripheral Pulses: 2+: Radial (L), Radial (R) GI/Abdominal: Normal Bowel Sounds, Soft, Non-Tender, No Distention, No Abnormal Bruit, No Mass, Pelvis Stable (Female) Exam: Deferred Rectal (Female) Exam: Deferred Back Exam: Normal Inspection, Full Range of Motion Extremities: Normal Inspection, Normal Range of Motion, Normal Capillary Refill, Pedal Edema (Trace pitting edema) Neurological: Alert, Oriented, CN II-XII Intact, Normal Cognition, Normal Gait, No Motor/Sensory Deficits Psychiatric: Anxious, Flat Affect Skin Exam: Warm, Dry, Intact, Normal Color, No Rash. No: Ecchymosis, Erythema, Mottled, Pallor, Petechiae #1 Interpretation EKG Date: 08/21/20 Time: 02:07 Rhythm: NSR Rate (Beats/Min): 71 [place]: Normal P-Wave: Present QRS: Normal ST-T: Normal QT: Normal MN/PQ Interval: 0.143 Comparison: No Change EKG Interpretation Comments: NSR; No evidence of acute myocardial ischemia Course - Vital Signs Last Recorded V/S: Last Vital Signs Temp 97.3 F 08/21/20 06:46 Pulse 78 08/21/20 06:46 Resp 20 08/21/20 06:46 BP 153/84 H 08/21/20 06:46 Pulse Ox 94 L 08/21/20 06:46 - Orders/Labs/Meds Orders: Active Orders 24 hr Category Date Time Status Admission Diagnosis [ADT] Stat ADT 08/21/20 05:08 Ordered Admission Status [Patient Status] [ADT] Routine ADT 08/21/20 05:08 Active UA RFX TERRA AND CULT IF INDIC [URIN] Stat Lab 08/21/20 02:00 Ordered Labs: Laboratory Tests 08/21/20 08/21/20 08/21/20 Range/Units 01:58 01:58 01:58 WBC 15.9 H (5.0-10.0) 10^3/uL RBC 5.03 (4.2-5.4) 10^6/uL Hgb 14.1 (12.0-16.0) g/dL Hct 44.0 (37.0-47.0) % MCV 87.5 (80-100) fL MCH 28.0 (27.0-34.0) pg MCHC 32.0 L (33.0-35.0) g/dL Plt Count 310 (150-450) 10^3/uL Neut % (Auto) 71.1 (42.2-75.2) % Lymph % (Auto) 19.7 L (20.5-50.1) % [place] % (Auto) 5.6 (2-8) % Eos % (Auto) 3.2 H (1.0-3.0) % Baso % (Auto) 0.4 (0.0-1.0) % Sodium 138 (136-145) mmol/L Potassium 4.4 (3.5-5.1) mmol/L Chloride 102 (98-107) mmol/L Carbon Dioxide 30 (21-32) mmol/L Anion Gap 10.4 (7-13) mEq/L BUN 12 (7-18) mg/dL Creatinine 0.92 (0.55-1.02) mg/dL Est Cr Clr Drug Dosing 69.25 mL/min Estimated GFR (MDRD) > 60 BUN/Creatinine Ratio 13.0 (No establ ref range) Glucose 317 H (70-99) mg/dL Lactic Acid 1.9 (0.4-2.0) mmol/L Calcium 8.5 (8.5-10.1) mg/dL Total Bilirubin 0.4 (0.2-1.0) mg/dL AST 25 (15-37) U/L ALT 48 (14-59) U/L Alkaline Phosphatase 102 (46-116) U/L Troponin I High Sens 7 (<=51) pg/mL C-Reactive Protein 2.8 H (0.0-0.9) mg/dL B-Natriuretic Peptide 91 (0-100) pg/ml Total Protein 6.2 L (6.4-8.2) g/dL Albumin 3.1 L (3.4-5.0) g/dL Globulin 3.1 Albumin/Globulin Ratio 1.00 SARS-CoV-2 RNA (RADAMES) (NEGATIVE) 08/21/20 Range/Units 05:13 WBC (5.0-10.0) 10^3/uL RBC (4.2-5.4) 10^6/uL Hgb (12.0-16.0) g/dL Hct (37.0-47.0) % MCV (80-100) fL MCH (27.0-34.0) pg MCHC (33.0-35.0) g/dL Plt Count (150-450) 10^3/uL Neut % (Auto) (42.2-75.2) % Lymph % (Auto) (20.5-50.1) % [place] % (Auto) (2-8) % Eos % (Auto) (1.0-3.0) % Baso % (Auto) (0.0-1.0) % Sodium (136-145) mmol/L Potassium (3.5-5.1) mmol/L Chloride (98-107) mmol/L Carbon Dioxide (21-32) mmol/L Anion Gap (7-13) mEq/L BUN (7-18) mg/dL Creatinine (0.55-1.02) mg/dL Est Cr Clr Drug Dosing mL/min Estimated GFR (MDRD) BUN/Creatinine Ratio (No establ ref range) Glucose (70-99) mg/dL Lactic Acid (0.4-2.0) mmol/L Calcium (8.5-10.1) mg/dL Total Bilirubin (0.2-1.0) mg/dL AST (15-37) U/L ALT (14-59) U/L Alkaline Phosphatase (46-116) U/L Troponin I High Sens (<=51) pg/mL C-Reactive Protein (0.0-0.9) mg/dL B-Natriuretic Peptide (0-100) pg/ml Total Protein (6.4-8.2) g/dL Albumin (3.4-5.0) g/dL Globulin Albumin/Globulin Ratio SARS-CoV-2 RNA (RADAMES) Negative (NEGATIVE) Meds: Medications Discontinued Medications Generic Name Dose Route Start Last Admin Trade Name Freq PRN Reason Stop Dose Admin Albuterol/Ipratropium 3 ml 08/21/20 05:40 08/21/20 05:48 Albuterol/Ipratropium 3.0-0.5 Mg/3 Ml Neb Soln NEB 08/21/20 05:41 3 ml ONETIME ONE Administration - Radiology Interpretation Free Text/Narrative:: [facility] Final Radiology Report Call: [phone] assistance Online chat: [email or web address] [place] Name: BOZENA POZO Age: 50Years F Date: 08/21/2020 SSN: -- : 1970 Study: CR CHEST 1V FRONTAL Requesting Physician: Elaine Aviles Images: 1 Addl Studies: Provided Clinical History: Chest pain Contrast: Contrast Medium: Contrast Amount: Contrast Method: CONFIDENTIALITY STATEMENT This report is intended only for use by the referring physician, and only in accordance with law. If you received this in error, call [phone]. Page 1 of 1 PROCEDURE INFORMATION: Exam: XR Chest Exam date and time: 08/21/2020 2:20 AM Age: 50 years old Clinical indication: Shortness of breath; Additional info: Chest pain TECHNIQUE: Imaging protocol: XR of the chest. Views: 1 view. COMPARISON: CR Chest 1V Frontal 08/16/2020 4:31 AM FINDINGS: Lungs: There is enlargement of the pulmonary vascularity. There is thickening of the interstitial markings. Pleural spaces: Unremarkable. No pleural effusion. No pneumothorax. Heart/Mediastinum: The heart is mildly enlarged. Bones/joints: Unremarkable. IMPRESSION: Congestive heart failure. Thank you for allowing us to participate in the care of your patient. Dictated and Authenticated by: Canelo Mclaughlin DO 08/21/2020 3:46 AM Central Time ([place] & [place]) - Re-Assessments/Exams Free Text/Narrative Re-Assessment/Exam: 08/21/20 EKG reveals NSR; Troponin WNL CXR obtained, reveals CHF. Departure - Departure Time of Disposition: 04:10 Disposition: Home, Self-Care 01 Condition: Fair Clinical Impression: Shortness of breath Congestive heart failure Qualifiers: Heart failure type: unspecified Heart failure chronicity: unspecified Qualified Code(s): I50.9 - Heart failure, unspecified - Discharge Information *PRESCRIPTION DRUG MONITORING PROGRAM REVIEWED*: Not Applicable *COPY OF PRESCRIPTION DRUG MONITORING REPORT IN PATIENT CARA: Not Applicable Referrals: PCP,Unobtain [Primary Care Provider] - Forms: ED Department Discharge Sepsis Event Note (ED) - Evaluation Sepsis Screening Result: No Definite Risk - Focused Exam Vital Signs: Vital Signs Temp Pulse Resp BP BP Pulse Ox 08/21/20 06:46 97.3 F 78 20 153/84 H 151/86 H 94 L 08/21/20 01:51 99.2 F 80 24 H 154/86 H 94 L - My Orders Last 24 Hours: My Active Orders 08/21/20 02:00 UA RFX TERRA AND CULT IF INDIC [URIN] Stat 08/21/20 05:08 Admission Diagnosis [ADT] Stat Admission Status [Patient Status] [ADT] Routine - Assessment/Plan Last 24 Hours: My Active Orders 08/21/20 02:00 UA RFX TERRA AND CULT IF INDIC [URIN] Stat 08/21/20 05:08 Admission Diagnosis [ADT] Stat Admission Status [Patient Status] [ADT] Routine
--- NOTE | 2020-08-21 03:46 | CR ---
PROCEDURE INFORMATION: Exam: XR Chest Exam date and time: 08/21/2020 2:20 AM Age: 50 years old Clinical indication: Shortness of breath; Additional info: Chest pain TECHNIQUE: Imaging protocol: XR of the chest. Views: 1 view. COMPARISON: CR Chest 1V Frontal 08/16/2020 4:31 AM FINDINGS: Lungs: There is enlargement of the pulmonary vascularity. There is thickening of the interstitial markings. Pleural spaces: Unremarkable. No pleural effusion. No pneumothorax. Heart/Mediastinum: The heart is mildly enlarged. Bones/joints: Unremarkable. IMPRESSION: Congestive heart failure.
[2020-08-21] MEDS ORDERED: Albuterol/Ipratropium 3.0-0.5 MG/3 ML Neb Soln NEB ONE (05:40)
[2020-08-21] MEDS ORDERED: Albuterol 6.7 GM Inhaler INH PRN (06:54)
[2020-08-21] MEDS ORDERED: Metoprolol Succinate 25 MG Tab.ER PO SCH (07:00)
[2020-08-21] MEDS ORDERED: Levothyroxine 25 MCG Tab PO SCH (07:00)
[2020-08-21] MEDS ORDERED: lamoTRIgine 100 MG Tab PO SCH (07:00)
[2020-08-21] MEDS ORDERED: MODAFINIL 100 MG PO SCH (07:00)
[2020-08-21] MEDS ORDERED: Non-Formulary Medication 1 Each (Meloxicam [Meloxicam] 15 MG Tablet) PO SCH (07:00)
[2020-08-21] MEDS ORDERED: LAMOTRIGINE 200 MG PO SCH (07:00)
[2020-08-21] MEDS ORDERED: Citalopram 20 MG Tab PO SCH (07:00)
[2020-08-21] MEDS ORDERED: Ondansetron 4 MG/2 ML SDV IVPUSH PRN (07:04)
[2020-08-21] MEDS ORDERED: Acetaminophen 325 MG Tab PO PRN (07:04)
[2020-08-21] MEDS ORDERED: 50% Dextrose in Water 50 ML Syringe IVPUSH PRN (07:13)
[2020-08-21] MEDS ORDERED: Glucagon,Human Recombinant 1 MG Vial IM PRN (07:13)
--- NOTE | 2020-08-21 07:13 | PCM.SN.2 ---
- Free Text/Narrative Note: START OF DOCTOR EMAMIS HISTORY AND PHYSICAL / CONSULTATION NOTE Chief Complaint: Shortness of breath History of Present Illness: The patient is a 10-year-old female who presents presents with chief plaint of dyspnea. She states she woke up at 12:30 AM to use the restroom and noticed that she was going dyspneic. The patient has fever, rigors, nausea, vomiting, cough, wheeze, abdominal pain, diarrhea, myalgia, chest pain, or new peripheral edema. She denies dysgeusia or anosmia. She presents for further evaluation Surgical History: Tonsillectomy, adenoidectomy, hysterectomy, cholecystectomy Family History: Cancer, diabetes, coronary artery disease, hypertension Social History: Tobacco: Active smoker Alcohol: Denies Caffeine: Coffee, tea, cola Drugs: Never Allergies: Latex, codeine, Steri-Strips, tape Code Status: Full Pertinent Laboratory Results / Pertinent Radiology Results / Pertinent Diagnostic Results / Pertinent Vital Signs: Blood pressure 154/86, pulse 80, respirations 24, temperature 9 9.2 degrees, 94% room air, white blood cell count 15.9 Physical Examination: General: -Alert -No acute distress -No dyspnea -No tachypnea -Morbidly obese Head: -Atraumatic -Normocephalic Eyes: -Pupils equally round and reactive to light and accommodation -Extraocular muscles intact Neurological: -Cranial nerves II-XII intact Neck: -No jugular venous distention -No thyromegaly -No cervical lymphadenopathy Heart: -Regular rate -Regular rhythm -No murmurs -No gallops -No rubs Lungs: -No wheeze -No rhonchi -No rales Abdomen: -Normal bowel sounds in all four quadrants -No rebound -No guarding -No tenderness Extremities: -2/4 pulse in all four extremities -No clubbing -No cyanosis -No edema -No calf tenderness present bilaterally -Negative Homans sign bilaterally Musculoskeletal: -5/5 bilateral upper extremity strength -5/5 bilateral lower extremity strength -Sensorium of bilateral upper extremities are equal and intact -Sensorium of bilateral lower extremities are equal and intact Additional Details / Additional Findings / Exceptions / Miscellaneous: Assessment / Plan: Dyspnea secondary to CHF exacerbation and/or COPD exacerbation CHF. Will monitor patient on telemetry and checks her cardiac enzymes and check echocardiogram. Strict I's/O. Daily weight. Toprol-XL 20 mg p.o. daily plus Lasix 40 mg IV every 8 hours Likely COPD. The patient is never been formally diagnosed however she has an extensive smoking history. Solu-Medrol 40 mg IV q. hours plus DuoNeb every 6 hours plus doxycycline 100 mg p.o. twice daily Constipation Obstructive sleep apnea. CPAP with pressures of 25 when sleeping Hypothyroidism. Synthroid 0.5 mg p.o. daily Depression. Celexa 40 mg p.o. daily Excessive daytime sleepiness, likely sequelae of obesity hypoventilation syndrome. Modafinil 100 mg p.o. daily History of seizure. Lamictal 300 g p.o. daily Chronic pain Diabetes. Will check fingerstick glucose before every meal and at bedtime and provide sulci scale plus Metformin 1000 mg p.o. twice daily Hyperlipidemia. Crestor 5 mg p.o. nightly Hypertension. Metoprolol 25 mg p.o. daily plus Lasix 40 mg IV every 8 hours Obesity. Patient be counseled regarding lifestyle modification Smoker. Patient becomes regarding smoking cessation Anxiety PTSD Hepatic steatosis Neuropathy. Gabapentin 100 mg p.o. nightly Seasonal allergies Arthritis. Mobic 15 mg p.o. daily GI prophylaxis. Protonix 40 mg p.o. daily DVT prophylaxis. Lovenox 40 mg subcutaneously daily Disposition: Anticipate discharge within 24 hours END OF DOCTOR EMAMIS HISTORY AND PHYSICAL / CONSULTATION NOTE
[2020-08-21] MEDS ORDERED: metFORMIN 500 MG Tab PO SCH (08:00)
[2020-08-21] MEDS: methylPREDNISolone Sodium Succinate 40 MG/1 ML SDV IVPUSH SCH ×2 (09:09→16:20)
[2020-08-21] MEDS: Doxycycline Monohydrate 100 MG Cap PO SCH ×2 (09:10→20:49)
[2020-08-21] MEDS: Enoxaparin 40 MG/0.4 ML Syringe SUBCUT SCH (09:10)
[2020-08-21] MEDS: Furosemide 40 MG/4 ML VIAL IV SCH ×2 (09:10→16:20)
[2020-08-21] MEDS ORDERED: Levothyroxine 25 MCG Tab PO ONE (09:15)
[2020-08-21] MEDS ORDERED: Citalopram 20 MG Tab PO ONE (09:15)
[2020-08-21] MEDS ORDERED: lamoTRIgine 100 MG Tab PO ONE ×2 (09:15)
[2020-08-21] MEDS ORDERED: metFORMIN 500 MG Tab PO ONE (09:15)
[2020-08-21] MEDS ORDERED: Metoprolol Succinate 25 MG Tab.ER PO ONE (09:15)
[2020-08-21] MEDS: Insulin Lispro 100 Units/ML 3 ML Vial SUBCUT SCH ×4 (09:44→20:48)
[2020-08-21] MEDS: Albuterol/Ipratropium 3.0-0.5 MG/3 ML Neb Soln NEB SCH ×2 (12:59→18:30)
[2020-08-21] MEDS ORDERED: Non-Formulary Medication 1 Each (Rosuvastatin [Crestor] 5 MG Tablet) PO SCH (21:00)
[2020-08-21] MEDS ORDERED: Gabapentin 100 MG Cap PO SCH (21:00)
[2020-08-22] MEDS: methylPREDNISolone Sodium Succinate 40 MG/1 ML SDV IVPUSH SCH ×2 (00:18→07:20)
[2020-08-22] MEDS: Furosemide 40 MG/4 ML VIAL IV SCH ×2 (00:19→08:06)
[2020-08-22] MEDS: Albuterol/Ipratropium 3.0-0.5 MG/3 ML Neb Soln NEB SCH ×2 (00:19→07:49)
[2020-08-22] MEDS ORDERED: Pantoprazole 40 MG Tab.CR PO SCH (06:00)
[2020-08-22 06:41] LABS: ANION GAP 13.8 mEq/L (7-13); CHLORIDE,CL 97 mmol/L (98-107); SODIUM,NA 137 mmol/L (136-145)
[2020-08-22] MEDS: Sodium Chloride 0.9% 10 ML Syringe FLUSH PRN ×2 (07:20→08:06)
--- NOTE | 2020-08-22 07:57 | PCM.SN.2 ---
- Free Text/Narrative Note: START OF DOCTOR EMAMIS DISCHARGE SUMMARY Date of Admission: August 21, 2020 Date of Discharge: 7:34 AM on August 22, 2020 Primary Diagnosis: Dyspnea secondary to CHF exacerbation and/or COPD exacerbation Secondary Diagnosis: CHF Likely COPD based on history although the patient has never formally been diagnosed Constipation Obstructive sleep apnea Hypothyroidism Depression Excessive daytime sleepiness, likely sequelae of obesity hypoventilation syndrome History of seizure Chronic pain Diabetes Hyperlipidemia Hypertension Obesity Smoker Anxiety PTSD Hepatic steatosis Neuropathy Seasonal allergies Arthritis Consultations: None Condition on Discharge: Stable Disposition: The patient will be advised to follow-up with her primary care physician or provider 7 to 10 days post discharge for posthospitalization evaluation The patient will require echocardiogram within 1 week of discharge for diagnosis of CHF Discharge Medications: K-Dur 20 [place] p.o. daily Lasix 40 mg p.o. twice daily Crestor 5 mg p.o. nightly Protonix 40 mg p.o. daily. Quantity 15. 0 refills. This is for GI prophylaxis while the patient is receiving prednisone and it is not for dyspepsia/GERD [place] fill 100 mg p.o. daily Toprol-XL 25 mg p.o. daily Prednisone 10 mg p.o.: 4 tabs daily x3 days then 3 tabs daily x3 days then 2 tabs daily x3 days then 1 tab daily x3 days. Quantity sufficient. 0 refills Metformin 500 mg p.o. twice daily Mobic 15 mg p.o. daily Synthroid 25 mcg p.o. daily Lamictal 300 mg p.o. daily Gabapentin 100 mg p.o. nightly Doxycycline 100 mg p.o. twice daily. Quantity 12. 0 refills Celexa 40 mg p.o. daily Proventil HFA: 90 suze as per spray: 2 puffs every 6 hours as needed shortness of breath/wheeze END OF DOCTOR EMAMIS DISCHARGE SUMMARY
[2020-08-22] MEDS: Doxycycline Monohydrate 100 MG Cap PO SCH (08:06)
[2020-08-22] MEDS: Enoxaparin 40 MG/0.4 ML Syringe SUBCUT SCH (08:07)
[2020-08-22] MEDS: Insulin Lispro 100 Units/ML 3 ML Vial SUBCUT SCH (08:23)
== END 2020-08-22 10:45 | disposition home or self-care (01) ==
LOC: DL.ED 01:48 → DL.MS 05:08
PROVIDERS: ADMIT Internal Medicine; ATTEND Internal Medicine
DX: I11.0 Hypertensive heart disease with heart failure (principal); I50.9 Heart failure, unspecified; R07.9 Chest pain, unspecified; F17.200 Nicotine dependence, unspecified, uncomplicated; E66.01 Morbid (severe) obesity due to excess calories; J44.1 Chronic obstructive pulmonary disease with (acute) exacerbation; K59.00 Constipation, unspecified; G47.33 Obstructive sleep apnea (adult) (pediatric); E03.9 Hypothyroidism, unspecified; G89.29 Other chronic pain; E78.5 Hyperlipidemia, unspecified; E11.40 Type 2 diabetes mellitus with diabetic neuropathy, unspecified; K76.0 Fatty (change of) liver, not elsewhere classified; Z79.899 Other long term (current) drug therapy; Z79.84 Long term (current) use of oral hypoglycemic drugs; Z98.890 Other specified postprocedural states; Z90.49 Acquired absence of other specified parts of digestive tract; Z82.49 Family history of ischemic heart disease and other diseases of the circulatory system; Z88.5 Allergy status to narcotic agent; Z91.048 Other nonmedicinal substance allergy status; Z79.890 Hormone replacement therapy; Z20.822 Contact with and (suspected) exposure to COVID-19
CPT/HCPCS: 36415; 71045; 80048; 80053; 82947; 83605; 83880; 84484; 85025; 86140; 87635; 93005; 94640; 99217; 99220; A9270; J1650; J1815; J1940; J2920; J7620-GY; U0002

== ENCOUNTER 2020-09-15 06:23 | Day surgery (SDC) | payer MEDICAID ==
[~2020-09-15 06:23] MED LIST changes: -Albuterol 0.021% 0.63 MG/3 ML Neb Soln NEB ONE; +Dextrose 5%-0.45% NaCl 1,000 ML IV SCH; +Midazolam 1 MG/ML 2 ML SDV ONE; +Sodium Chloride 0.9% 10 ML Syringe FLUSH PRN; +fentaNYL 100 MCG/2 ML SDV ONE; -methylPREDNISolone Sodium Succinate 125 MG/2 ML SDV IM ONE
[2020-09-15] MEDS ORDERED: Midazolam 1 MG/ML 2 ML SDV IV ONE ×3 (06:24→07:49)
[2020-09-15] MEDS ORDERED: fentaNYL 100 MCG/2 ML SDV IV ONE ×3 (06:24→07:48)
--- NOTE | 2020-09-15 09:40 | OR ---
DATE: 09/15/2020 PROCEDURES: Esophagogastroduodenoscopy and multiple pinch biopsies. INSTRUMENT USED: [id number]-HQ190 Olympus video panendoscope. PREMEDICATIONS: No oral or topical anesthesia used. Fentanyl 100 mcg intravenous, Versed 2 mg intravenous, nasal O2 cannula. The procedure was done under pulse oximetry, BP recording, and school bus monitor. INDICATION: Diabetic patient, on multiple medications with persistent heartburn, abdominal pain, and diarrhea, unexplained and not responsive to medical measures, on long-term PPI. Esophagogastroduodenoscopy is performed for detection of any active erosive lesions, Raymond esophagus and/or malignancy also under consideration, H pylori status to be determined. Small bowel biopsies to be obtained for any evidence of celiac disease. Endoscopic hemostasis therapy if needed. PROCEDURE IN DETAIL: The scope was passed with ease. Adequate visualization of the esophagus was made from proximal to distal areas. No upper esophageal lesions identified. No distal esophageal stricture. No uphill or downhill esophageal varices. No Cramen-Carroll tear. No evidence of erosive esophagitis by Los-Peri criteria. No esophageal polyp or tumor mass identified. Z-line was seen at around 40 cm distal to the oral verge. No proximal gastric varices noted. Gastric fundus examination by retroflexion showed no polypoid lesions. No gastric ulcer, malignant mass, or vascular ectasia identified. Duodenal bulb showed no ulcer. Visualized second part of the duodenum was unremarkable. Multiple pinch biopsies, 4 in number, were taken from different areas of the second part of duodenum and tissues were also obtained from the duodenal bulb at 9 and 12 o'clock positions and sent for any histopathologic evidence of celiac disease. Multiple pinch biopsies were also obtained from the gastric antrum and proximal body and sent for PyloriTek test for H pylori and histopathology. No bleeding was noted from any of the visualized areas at the completion of examination. Photographs were taken of the duodenal bulb, gastric antrum, fundus, and distal esophagus. IMPRESSION: Normal study. The patient tolerated the procedure well. [facility] /[id number]
== END 2020-09-15 10:03 | disposition home or self-care (01) ==
LOC: DL.ENDO 06:23
PROVIDERS: ATTEND Internal Medicine Gastroenterology
DX: D72.820 Lymphocytosis (symptomatic) (principal); K31.89 Other diseases of stomach and duodenum; I78.1 Nevus, non-neoplastic; E66.01 Morbid (severe) obesity due to excess calories; E11.9 Type 2 diabetes mellitus without complications; I10 Essential (primary) hypertension; E03.9 Hypothyroidism, unspecified; D72.829 Elevated white blood cell count, unspecified; G47.33 Obstructive sleep apnea (adult) (pediatric); Z91.040 Latex allergy status; Z88.5 Allergy status to narcotic agent; Z98.890 Other specified postprocedural states; Z90.49 Acquired absence of other specified parts of digestive tract
CPT/HCPCS: 43239; 87077; J2250; J3010; J7042

== ENCOUNTER 2020-09-16 05:29 | Day surgery (SDC) | payer MEDICAID ==
[~2020-09-16 05:29] MED LIST changes: -Dextrose 5%-0.45% NaCl 1,000 ML IV SCH; -Sodium Chloride 0.9% 10 ML Syringe FLUSH PRN
[2020-09-16] MEDS ORDERED: Midazolam 1 MG/ML 2 ML SDV IV ONE (05:30)
[2020-09-16] MEDS ORDERED: fentaNYL 100 MCG/2 ML SDV IV ONE (05:30)
[2020-09-16] MEDS: Dextrose 5%-0.45% NaCl 1,000 ML IV SCH (05:52)
[2020-09-16] MEDS: fentaNYL 100 MCG/2 ML SDV IV ONE ×2 (07:04→07:05)
[2020-09-16] MEDS: Midazolam 1 MG/ML 2 ML SDV IV ONE ×6 (07:05→07:12)
--- NOTE | 2020-09-16 10:17 | OR ---
DATE: 09/16/2020 PROCEDURES: Total colonoscopy, terminal ileoscopy, narrow band imaging, and multiple pinch biopsies. INSTRUMENT USED: [id number]-H190DL Olympus video colonoscope. PREMEDICATIONS: Fentanyl 100 mcg intravenous, Versed 4 mg intravenous. Nasal O2 cannula. The procedure was done under pulse oximetry, BP recording, and cardiac tech. INDICATION: Diabetic, on multiple medications with chronic diarrhea, unexplained, and not responsive to medical measures. Colonoscopic examination is done for detection of any polypoid lesions and removal, biopsies to be obtained for any evidence of microscopic colitis, endoscopic hemostasis therapy if needed. DESCRIPTION OF PROCEDURE: Initial rectal exam was unremarkable. Limited rigid anoscopic examination normal. The colonoscope was passed with ease up to and beyond the ileocecal junction to visualize normal-appearing terminal ileum, NBI views were obtained, photographs were taken, multiple pinch biopsies were obtained and sent for histopathology. Photographs were taken of the normal- appearing cecum. No bleeding was noted from any of the visualized areas at the commencement of the examination. There was large amount of fecal material that had to be aspirated, limiting visualization of few areas. Bowel preparation Gardiner scale 2 in all the areas, total score 6. No stricture. No vascular ectasia. No large isolated ulcerations seen. No evidence of diffuse inflammatory bowel disease in the form of friability, contact bleeding, or ulcerations. No polyp or tumor mass identified. Probing the proximal sides of folds and flexures using adequate distention and clearing up the stool material, withdrawal of the scope was made. Multiple pinch biopsies were taken from the normal-appearing mucosa of the mid transverse colon, mid descending colon, and rectosigmoid, and sent for histopathologic evidence of microscopic colitis. No bleeding was noted from any of the visualized areas at the completion of the examination. IMPRESSION: Normal study. The patient tolerated the procedure well. [facility] /[id number]
== END 2020-09-16 09:24 | disposition home or self-care (01) ==
LOC: DL.ENDO 05:29
PROVIDERS: ATTEND Internal Medicine Gastroenterology
DX: K52.9 Noninfective gastroenteritis and colitis, unspecified (principal); R12 Heartburn; E66.09 Other obesity due to excess calories; E78.5 Hyperlipidemia, unspecified; E11.9 Type 2 diabetes mellitus without complications; I10 Essential (primary) hypertension; E03.9 Hypothyroidism, unspecified; J45.909 Unspecified asthma, uncomplicated; D72.829 Elevated white blood cell count, unspecified; Z85.41 Personal history of malignant neoplasm of cervix uteri; Z88.6 Allergy status to analgesic agent; Z91.040 Latex allergy status; Z91.09 Other allergy status, other than to drugs and biological substances; Z68.42 Body mass index [BMI] 45.0-49.9, adult
CPT/HCPCS: 45380; J2250; J3010; J7042

== ENCOUNTER 2021-02-03 06:56 | Emergency (ER) | payer MEDICAID ==
[2021-02-03] MEDS ORDERED: Amoxicillin/Clavulanate K 875-125 MG Tab PO ONE (07:39)
--- NOTE | 2021-02-03 07:48 | EDM.PDOC ---
ED HPI GENERAL MEDICAL PROBLEM - General Chief Complaint: Eye Problems Stated Complaint: WOKE UP WITH BLOOD IN LEFT EYE Time Seen by Provider: 02/03/21 07:15 Source of Information: Reports: Patient History Limitations: Reports: No Limitations - History of Present Illness INITIAL COMMENTS - FREE TEXT/NARRATIVE: This 50 yo female patient reports to the ED with pain to her left eye and facial swelling. The patient reports symptoms were recognized at about 0530 this morning when she woke up. The patient reports pain due to pressure throughout her sinuses. 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 Left Eye Pain Score (Numeric/FACES): 7 - Related Data Allergies Allergy/AdvReac Type Severity Reaction Status Date / Time latex Allergy Rash Verified 02/03/21 07:10 codeine AdvReac Hyperactivi Verified 02/03/21 07:10 ty Steri Strips Allergy Rash Uncoded 02/03/21 07:10 TAPE Allergy Rash Uncoded 02/03/21 07:10 Home Meds: Home Meds Levothyroxine 25 mcg PO DAILY 07/15/20 [History] Meloxicam 15 mg PO DAILY 07/15/20 [History] Modafinil [Provigil] 100 mg PO DAILY 07/15/20 [History] lamoTRIgine 200 mg PO DAILY 07/15/20 [History] lamoTRIgine [Lamotrigine] 100 mg PO DAILY 07/15/20 [History] Citalopram [Citalopram HBr] 40 mg PO DAILY 08/21/20 [History] Metoprolol Succinate 25 mg PO DAILY 08/21/20 [History] metFORMIN [Glucophage] 1,000 mg PO BIDMEALS 08/21/20 [History] Rosuvastatin [Crestor] 5 mg PO BEDTIME 08/22/20 [Rx] Albuterol [Proventil HFA] 1 puff INH Q4HR PRN 08/24/20 [History] Mupirocin Cream [Bactroban Crm] 1 applic SQ TID 08/24/20 [History] Pioglitazone [Actos] 30 mg PO DAILY 08/24/20 [History] Albuterol/Ipratropium [DuoNeb 3.0-0.5 MG/3 ML] 1 vial INH ASDIRECTED PRN 09/13/20 [History] Bumetanide [Bumex] 2 mg PO BID 09/13/20 [History] Gabapentin [Neurontin] 100 mg PO DAILY 09/13/20 [History] Glucosamine [Glucosamine Sulfate] 500 mg PO DAILY 09/13/20 [History] Liraglutide [Victoza 2-Murphy] 1.8 mg SQ DAILY 09/13/20 [History] Mometasone/Formoterol [Dulera 200-5 MCG] 2 puff INH DAILY 09/13/20 [History] Pantoprazole [ProTONIX] 40 mg PO ACBREAKFAST 09/13/20 [History] Potassium Chloride 20 meq PO BID 09/13/20 [History] Past Medical History HEENT History: Reports: Impaired Vision Cardiovascular History: Reports: Heart Failure, Heart Murmur, High Cholesterol, Hypertension, Syncope Respiratory History: Reports: Asthma, Sleep Apnea Gastrointestinal History: Reports: Hemorrhoids, Other (See Below) Other Gastrointestinal History: something wrong with the rectum. Steattorhea. 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: Polycystic Ovaries, , Therapeutic Musculoskeletal History: Reports: Back Pain, Chronic, Osteoarthritis Neurological History: Reports: Head Trauma, Neuropathy, Peripheral, Vertigo Psychiatric History: Reports: Anxiety, Depression, Mood Swings, PTSD Endocrine/Metabolic History: Reports: Diabetes, Type II, Hypothyroidism, Obesity/BMI 30+ Hematologic History: Reports: Other (See Below) Other Hematologic History: LEUKOCYTOSIS Immunologic History: Reports: None Oncologic (Cancer) History: Reports: Uterine Dermatologic History: Reports: Eczema, Urticaria - Infectious Disease History Infectious Disease History: Reports: Chicken Pox - Past Surgical History Head Surgeries/Procedures: Reports: None HEENT Surgical History: Reports: Adenoidectomy, Naso-Sinus Surgery, Tonsillectomy Cardiovascular Surgical History: Reports: None Respiratory Surgical History: Reports: None, Other (See Below) Other Respiratory Surgeries/Procedures: wears CPAP at night. GI Surgical History: Reports: Cholecystectomy, EGD Female Surgical History: Reports: Endometrial Ablation, Hysterectomy, Oophorectomy Endocrine Surgical History: Reports: None Neurological Surgical History: Reports: None Musculoskeletal Surgical History: Reports: None Oncologic Surgical History: Reports: None Dermatological Surgical History: Reports: None Social & Family History - Family History Family Medical History: No Pertinent Family History - Tobacco Use Tobacco Use Status *Q: Former Tobacco User Years of Tobacco use: 20 Packs/Tins Daily: 1 Used Tobacco, but Quit: Yes Month/Year Tobacco Last Used: November Second Hand Smoke Exposure: No - Caffeine Use Caffeine Use: Reports: Coffee Other Caffeine Use: 1 CUP COFFEE DAILY - Recreational Drug Use Recreational Drug Use: No ED ROS GENERAL - Review of Systems Review Of Systems: Comprehensive ROS is negative, except as noted in HPI. ED EXAM GENERAL W FULL EYE - Physical Exam Exam: See Below Exam Limited By: No Limitations General Appearance: Alert, WD/WN, Mild Distress, Obese Eye Exam: Left Eye: Other (The patient has a ruptured blood vessel to the left lateral eye), Bilateral Eye: EOMI, PERRL Eyelids: Bilateral: Edema (Mild) Conjunctiva & Sclera: Left: Subconjuctival Hemorrhage Cornea Exam: Bilateral: Normal Appearance Extraocular Movements: Bilateral: Intact Pupils: Normal Accommodation Pupillary Size: Bilateral: 4 mm Pupillary Reaction: Right: Brisk Anterior Chamber: Bilateral: Normal Appearance Posterior Chamber: Bilateral: Normal Funduscopic Ears: Normal External Exam, Normal Canal, Hearing Grossly Normal, Normal TMs Nose: Normal Inspection, Normal Mucosa, No Blood Throat/Mouth: Normal Inspection, Normal Lips, Normal Teeth, Normal Gums, Normal Oropharynx, Normal Voice, No Airway Compromise Head: Sinus Tenderness Neck: Normal Inspection, Supple, Non-Tender, Full Range of Motion Respiratory/Chest: No Respiratory Distress, Lungs Clear, Normal Breath Sounds, No Accessory Muscle Use, Chest Non-Tender Cardiovascular: Normal Peripheral Pulses, Regular Rate, Rhythm, No Edema, No Gallop, No JVD, No Murmur, No Rub GI/Abdominal: Normal Bowel Sounds, Soft, Non-Tender, No Organomegaly, No Distention, No Abnormal Bruit, No Mass (Female) Exam: Deferred Rectal (Males) Exam: Deferred Extremities: Normal Inspection, Normal Range of Motion, Non-Tender, Normal Capillary Refill, No Pedal Edema Neurological: Alert, Oriented, CN II-XII Intact, Normal Cognition, Normal Gait, Normal Reflexes, No Motor/Sensory Deficits Psychiatric: Normal Affect, Normal Mood Skin Exam: Warm, Dry, Intact, Normal Color, No Rash Lymphatic: No Adenopathy Course - Vital Signs Last Recorded V/S: Last Vital Signs Temp 97.1 F 02/03/21 07:02 Pulse 84 02/03/21 07:02 Resp 18 02/03/21 07:02 BP 165/101 H 02/03/21 07:02 Pulse Ox 96 02/03/21 07:02 - Orders/Labs/Meds Meds: Medications Discontinued Medications Generic Name Dose Route Start Last Admin Trade Name Michele PRN Reason Stop Dose Admin Amoxicillin/Clavulanate Potassium 1 tab 02/03/21 07:39 Amoxicillin/Clavulanate K 875-125 Mg Tab PO 02/03/21 07:40 ONETIME ONE Departure - Departure Time of Disposition: 07:42 Disposition: Home, Self-Care 01 Condition: Fair Clinical Impression: Conjunctival hemorrhage of left eye Acute sinusitis Qualifiers: Sinusitis location: maxillary Recurrence: non-recurrent Qualified Code(s): J01.00 - Acute maxillary sinusitis, unspecified - Discharge Information *PRESCRIPTION DRUG MONITORING PROGRAM REVIEWED*: Not Applicable *COPY OF PRESCRIPTION DRUG MONITORING REPORT IN PATIENT CARA: Not Applicable Instructions: Sinusitis, Adult, [id number] Forms: ED Department Discharge Care Plan Goals: The patient was advised of the examination results during the visit. The patient was given an oral dose of Augmentin while in the ED. The patient was discharged with a script for Augmentin (500/125) #20 to take 1 by mouth 2 times per day for 10 days. The patient was encouraged to take Tylenol or ibuprofen as directed for temporary symptom relief. If the patient has any additional symptoms or concerns, the patient should either return to the emergency department or visit her primary care facility. Sepsis Event Note (ED) - Evaluation Sepsis Screening Result: No Definite Risk - Focused Exam Vital Signs: Vital Signs Temp Pulse Resp BP Pulse Ox 02/03/21 07:02 97.1 F 84 18 165/101 H 96
== END 2021-02-03 07:53 | disposition home or self-care (01) ==
LOC: DL.ED 06:56
DX: H11.32 Conjunctival hemorrhage, left eye (principal); J01.00 Acute maxillary sinusitis, unspecified; E78.00 Pure hypercholesterolemia, unspecified; I11.0 Hypertensive heart disease with heart failure; I50.9 Heart failure, unspecified; E11.9 Type 2 diabetes mellitus without complications; E03.9 Hypothyroidism, unspecified; E66.9 Obesity, unspecified; Z87.891 Personal history of nicotine dependence; Z91.048 Other nonmedicinal substance allergy status; Z91.040 Latex allergy status; Z88.5 Allergy status to narcotic agent; Z79.899 Other long term (current) drug therapy; Z68.42 Body mass index [BMI] 45.0-49.9, adult
CPT/HCPCS: 99283; A9270-GY

== ENCOUNTER 2024-04-27 18:05 | Emergency (ER) | payer OTHER, MEDICAID, MEDICARE ==
[2024-04-27] MEDS: Doxycycline Monohydrate 100 MG Cap PO ONE (18:40)
== END 2024-04-27 18:41 | disposition home or self-care (01) ==
LOC: DL.ED 18:05
DX: J18.9 Pneumonia, unspecified organism (principal); I11.0 Hypertensive heart disease with heart failure; I50.9 Heart failure, unspecified; E11.40 Type 2 diabetes mellitus with diabetic neuropathy, unspecified; E03.9 Hypothyroidism, unspecified; E66.9 Obesity, unspecified; Z90.49 Acquired absence of other specified parts of digestive tract; Z90.710 Acquired absence of both cervix and uterus; Z79.899 Other long term (current) drug therapy; Z79.84 Long term (current) use of oral hypoglycemic drugs; Z79.890 Hormone replacement therapy; Z91.040 Latex allergy status; Z88.6 Allergy status to analgesic agent; Z91.048 Other nonmedicinal substance allergy status; Z68.43 Body mass index [BMI] 50.0-59.9, adult
CPT/HCPCS: 99283; 99284; A9270

== ENCOUNTER 2024-06-21 08:12 | Emergency (ER) | payer MEDICARE, MEDICAID | END 2024-06-21 09:05 | disposition home or self-care (01) | LOC: DL.ED 08:12 | DX: M96.89 Other intraoperative and postprocedural complications and disorders of the musculoskeletal system (principal); Z96.652 Presence of left artificial knee joint; I11.0 Hypertensive heart disease with heart failure; I50.9 Heart failure, unspecified; E78.00 Pure hypercholesterolemia, unspecified; E11.40 Type 2 diabetes mellitus with diabetic neuropathy, unspecified; E66.9 Obesity, unspecified; E03.9 Hypothyroidism, unspecified; M19.90 Unspecified osteoarthritis, unspecified site; J45.909 Unspecified asthma, uncomplicated; Z88.8 Allergy status to other drugs, medicaments and biological substances; Z91.040 Latex allergy status; Z91.048 Other nonmedicinal substance allergy status; Z79.890 Hormone replacement therapy; Z79.899 Other long term (current) drug therapy; Z79.84 Long term (current) use of oral hypoglycemic drugs; Z79.51 Long term (current) use of inhaled steroids; Z79.02 Long term (current) use of antithrombotics/antiplatelets; Z90.49 Acquired absence of other specified parts of digestive tract; Z90.710 Acquired absence of both cervix and uterus; Z68.43 Body mass index [BMI] 50.0-59.9, adult | CPT/HCPCS: 99283 ==

== ENCOUNTER 2024-09-01 17:03 | Emergency (ER) | payer MEDICARE, MEDICAID | END 2024-09-01 17:40 | disposition home or self-care (01) | LOC: DL.ED 17:03 | DX: S00.512A Abrasion of oral cavity, initial encounter (principal); I11.0 Hypertensive heart disease with heart failure; I50.9 Heart failure, unspecified; E78.00 Pure hypercholesterolemia, unspecified; J45.909 Unspecified asthma, uncomplicated; E11.9 Type 2 diabetes mellitus without complications; E03.9 Hypothyroidism, unspecified; Z90.49 Acquired absence of other specified parts of digestive tract; Z90.710 Acquired absence of both cervix and uterus; Z88.1 Allergy status to other antibiotic agents; Z88.5 Allergy status to narcotic agent; Z91.040 Latex allergy status; Z91.048 Other nonmedicinal substance allergy status; Z79.84 Long term (current) use of oral hypoglycemic drugs; Z79.51 Long term (current) use of inhaled steroids; Z79.890 Hormone replacement therapy; Z79.899 Other long term (current) drug therapy; W50.3XXA Accidental bite by another person, initial encounter | CPT/HCPCS: 99282 ==